=== PATIENT | male | born 1950 | race Caucasian/White ===

== ENCOUNTER 2020-03-01 08:08 | Outpatient (REF) | payer MEDICARE, OTHER, SELFPAY ==
[2020-03-01 10:56] LABS: Thyroid Stimulating Hormone 0.49 uIU/mL (0.32-4.0)
== END 2020-03-01 08:09 | disposition home or self-care (01) ==
LOC: HO.10HDL 08:08
PROVIDERS: Visit Provider Internal Medicine
DX: E03.9 Hypothyroidism, unspecified (principal)
CPT/HCPCS: 84443

== ENCOUNTER 2020-08-09 11:04 | Outpatient (REF) | payer MEDICARE, OTHER, SELFPAY ==
[2020-08-09 13:23] LABS: Thyroid Stimulating Hormone 0.61 uIU/mL (0.32-4.0)
== END 2020-08-09 11:05 | disposition home or self-care (01) ==
LOC: HO.10HDL 11:04
PROVIDERS: Visit Provider Internal Medicine
DX: E03.9 Hypothyroidism, unspecified (principal)
CPT/HCPCS: 36415; 84443

== ENCOUNTER 2021-02-19 07:45 | Outpatient (REF) | payer MEDICARE, OTHER, SELFPAY ==
[2021-02-19 10:17] LABS: MANUAL DIFF FLAG NO
[2021-02-19 10:24] LABS: Basophils Percent Auto 0.8 % (0-2); Eosinophils Absolute Auto 0.1 X10*3/uL (0.0-0.4); Eosinophils Percent Auto 3.4 % (0-4); Hematocrit 46.6 % (42.0-52.0); Hemoglobin 15.1 g/dl (14.0-18.0); Lymphocytes Absolute Auto 1.2 X10*3/uL (1.2-4.9); Lymphocytes Percent Auto 34.1 % (20-40); Mean Corpuscular HGB Conc 32.4 g/dl (31.0-36.0); Mean Corpuscular Hemoglobin 28.2 pg (27.0-33.0); Mean Corpuscular Volume 87.1 fL (80.0-98.0); Mean Platelet Volume 10.2 fL (9.4-12.4); Monocytes Absolute Auto 0.5 X10*3/uL (0.1-1.2); Monocytes Percent Auto 12.6 % (2-11); Neutrophils Absolute Auto 1.8 x10*3/uL (2.0-8.3); Neutrophils Percent Auto 49.1 % (45-73); Platelet Count 238 X10*3/uL (160-400); Red Blood Count 5.35 X10*6/uL (4.60-5.80); Red Cell Distribution Width 12.8 % (11.0-16.0); White Blood Count 3.6 X10*3/uL (4.8-10.8)
[2021-02-19 10:35] LABS: Alanine Aminotransferase 31 U/L (0-40); Albumin Level 4.4 g/dL (3.5-5.0); Alkaline Phosphatase 66 U/L (39-117); Anion Gap 16 (12-20); Aspartate Amino Transferase 24 U/L (5-37); Bilirubin Total 0.8 mg/dL (0.0-1.0); Blood Urea Nitrogen 16 mg/dL (9-16); Calcium 9.5 mg/dL (8.4-10.2); Carbon Dioxide 26 mmol/L (22-29); Chloride 104 mmol/L (96-108); Cholesterol 211 mg/dL; Estimated Glomerular Filt Rate > 60; Glucose Fasting 116 mg/dL (60-99); HDL Cholesterol 50 mg/dL; LDL Cholesterol Calculated 144 mg/dl; Potassium 4.5 mmol/L (3.3-5.1); Sodium 141 mmol/L (135-145); Total Protein 7.1 g/dL (6.5-8.0); Triglycerides 87 mg/dL
[2021-02-19 10:56] LABS: Prostate Specific Antigen Scr 0.08 ng/mL (<0.05-4.0); Thyroid Stimulating Hormone 0.95 uIU/mL (0.32-4.0)
== END 2021-02-19 07:46 | disposition home or self-care (01) ==
LOC: HO.10HDL 07:45
PROVIDERS: Visit Provider Internal Medicine
DX: Z00.00 Encounter for general adult medical examination without abnormal findings (principal); Z12.5 Encounter for screening for malignant neoplasm of prostate
CPT/HCPCS: 36415; 80053; 80061; 84153; 84443; 85025

== ENCOUNTER 2021-08-23 07:31 | Outpatient (REF) | payer MEDICARE, OTHER, SELFPAY ==
[2021-08-23 08:30] LABS: Cholesterol 192 mg/dL; HDL Cholesterol 44 mg/dL; LDL Cholesterol Calculated 135 mg/dl; Triglycerides 66 mg/dL
[2021-08-23 08:53] LABS: Thyroid Stimulating Hormone 1.28 uIU/mL (0.32-4.0)
== END 2021-08-23 07:32 | disposition home or self-care (01) ==
LOC: HO.LAB 07:31
PROVIDERS: PCP Internal Medicine; Visit Provider Internal Medicine
DX: Z00.00 Encounter for general adult medical examination without abnormal findings (principal); E03.9 Hypothyroidism, unspecified
CPT/HCPCS: 36415; 80061; 84443

== ENCOUNTER 2021-09-12 13:41 | Outpatient (REF) | payer MEDICARE, OTHER, SELFPAY ==
--- NOTE | ~2021-09-12 | US_ITS ---
EXAMINATION: US EXTRACRANIAL CAROTID DUPLEX, BILATERAL CLINICAL INFORMATION: Retinal vascular occlusion COMPARISON: None TECHNIQUE: Real-time ultrasound and Doppler techniques (integrating B-mode 2-D vascular images, Doppler spectral analysis and color-flow Doppler imaging) were utilized to interrogate the extracranial carotid arteries, the vertebral arteries and proximal subclavian arteries bilaterally. The degree of stenosis is determined by criteria similar to NASCET. FINDINGS: Right Side: 1. There is mild atherosclerotic plaque seen in the bifurcation/proximal ICA region. 2. The common carotid artery PSV proximally is 80 cm/s and distally 93 cm/s. 3. The proximal internal carotid artery velocities are 108 cm/s systolic and 31 cm/s diastolic. 4. The proximal external carotid artery PSV is 136 cm/s. 5. The vertebral artery shows antegrade flow. 6. The subclavian artery waveforms are normal. Left Side: 1. There is mild atherosclerotic plaque seen in the bifurcation/proximal ICA region. 2. The common carotid artery PSV proximally is 78 cm/s and distally 82 cm/s. 3. The proximal internal carotid artery velocities are 79 cm/s systolic and 24 cm/s diastolic. 4. The proximal external carotid artery PSV is 327 cm/s. 5. The vertebral artery shows antegrade flow. 6. The subclavian artery waveforms are normal. US/US carotid duplex BI IMPRESSION: 1. RIGHT: Minimal, non-hemodynamically significant stenosis of the proximal right internal carotid artery corresponding to a 0-49% stenosis by velocity criteria. 2. LEFT: Minimal, non-hemodynamically significant stenosis of the proximal left internal carotid artery corresponding to a 0-49% stenosis by velocity criteria. 3. Elevated velocities in the right external carotid artery suggesting stenosis.
== END 2021-09-12 13:42 | disposition home or self-care (01) ==
LOC: HO.US 13:41
PROVIDERS: Visit Provider Internal Medicine
DX: H34.9 Unspecified retinal vascular occlusion (principal)
CPT/HCPCS: 93880

== ENCOUNTER 2022-03-04 07:26 | Outpatient (REF) | payer MEDICARE, OTHER, SELFPAY ==
[2022-03-04 07:31] LABS: MANUAL DIFF FLAG NO
[2022-03-04 08:10] LABS: Eosinophils Absolute Auto 0.2 X10*3/uL (0.0-0.4); Eosinophils Percent Auto 5.5 % (0-4); Hematocrit 47.2 % (42.0-52.0); Imm Gran Abs Auto 0.02 X10*3/uL (0.00-0.03); Imm Gran Pct Auto 0.5 % (0.0-0.4); Lymphocytes Percent Auto 25.3 % (20-40); Mean Corpuscular HGB Conc 31.8 g/dl (31.0-36.0); Mean Corpuscular Hemoglobin 28.3 pg (27.0-33.0); Mean Corpuscular Volume 89.1 fL (80.0-98.0); Monocytes Absolute Auto 0.5 X10*3/uL (0.1-1.2); Monocytes Percent Auto 12.5 % (2-11); Neutrophils Absolute Auto 2.2 x10*3/uL (2.0-8.3); Neutrophils Percent Auto 55.2 % (45-73); Platelet Count 228 X10*3/uL (160-400); Red Cell Distribution Width 12.8 % (11.0-16.0)
[2022-03-04 08:58] LABS: Alanine Aminotransferase 26 U/L (0-40); Albumin Level 4.3 g/dL (3.5-5.0); Alkaline Phosphatase 69 U/L (39-117); Anion Gap 14 (12-20); Aspartate Amino Transferase 22 U/L (5-37); Bilirubin Total 0.4 mg/dL (0.0-1.0); Blood Urea Nitrogen 18 mg/dL (9-16); Calcium 10.1 mg/dL (8.4-10.2); Carbon Dioxide 30 mmol/L (22-29); Chloride 103 mmol/L (96-108); Cholesterol 192 mg/dL; Estimated Glomerular Filt Rate > 60; Glucose Fasting 116 mg/dL (60-99); HDL Cholesterol 46 mg/dL; LDL Cholesterol Calculated 127 mg/dl; Sodium 142 mmol/L (135-145); Thyroid Stimulating Hormone 1.75 uIU/mL (0.32-4.0); Total Protein 6.9 g/dL (6.5-8.0); Triglycerides 98 mg/dL
== END 2022-03-04 07:27 | disposition home or self-care (01) ==
LOC: HO.LAB 07:26
PROVIDERS: PCP Internal Medicine; Visit Provider Internal Medicine
DX: Z00.00 Encounter for general adult medical examination without abnormal findings (principal); Z13.0 Encounter for screening for diseases of the blood and blood-forming organs and certain disorders involving the immune mechanism
CPT/HCPCS: 36415; 80053; 80061; 84443; 85025

== ENCOUNTER 2022-10-06 07:45 | Outpatient (REF) | payer MEDICARE, OTHER, SELFPAY ==
[2022-10-06 09:22] LABS: Thyroid Stimulating Hormone 1.79 uIU/mL (0.32-4.0)
== END 2022-10-06 07:46 | disposition home or self-care (01) ==
LOC: HO.LAB 07:45
PROVIDERS: PCP Internal Medicine; Visit Provider Internal Medicine
DX: E03.9 Hypothyroidism, unspecified (principal)
CPT/HCPCS: 36415; 84443

== ENCOUNTER 2023-02-28 04:59 | Emergency (ER) | payer MEDICARE, OTHER, SELFPAY ==
[2023-02-28 05:00] VITALS: BP 158/71; PULSE 59; RESP 18; TEMP 36.6; O2SAT 99; BMI 25.1
--- NOTE | 2023-02-28 05:12 | PC.NURSE ---
Adjusted acuity to 4 from 3, incorrect initial entry.
--- NOTE | 2023-02-28 06:05 | ED_ITS ---
HPI - Dental/Oral General Chief complaint: Dental/Oral Stated complaint: Dental pain Time Seen by Provider: 02/28/23 06:05 Source: patient Mode of arrival: ambulatory Limitations: no limitations History of Present Illness HPI Narrative: Patient history of diffuse dental caries supposed the oral surgeon for full mouth dental implant comes here for pain and swelling in the left lower molar area since yesterday no fever no chills Complaint: tooth pain Teeth map: 2 1. Related Data Home Medications Medication Instructions Recorded Confirmed finasteride 1 mg tablet 1 mg PO DAILY 03/12/20 10/15/22 Previous Rx's Medication Instructions Recorded zolpidem 5 mg tablet 5 mg PO BEDTIME PRN insomnia #90 10/20/22 tabs Synthroid 150 mcg tablet 150 mcg PO QAM #90 tabs 02/16/23 (levothyroxine) amoxicillin 875 mg-potassium 1 tab PO BID #20 tabs 02/28/23 clavulanate 125 mg tablet oxycodone-acetaminophen 5 mg-325 1 tab PO Q6H PRN pain #20 tabs 02/28/23 mg tablet (Percocet) Allergies Allergy/AdvReac Type Severity Reaction Status Date / Time No Known Allergies Allergy Verified 02/28/23 05:03 [No Known Allergies*] Review of Systems 2 Review of Systems: Yes all other systems are reviewed and are negative PMFSH Past Medical History Medical History Hypothyroidism Surgical History H/O rectal polypectomy History of thyroidectomy, total History of hernia repair Family History Family History Father Alzheimers disease Mother Heart disease Colon polyps Other Mental health disorder Social History Social History Housing: House Alcohol intake: current Alcohol intake frequency: a few times a week Patient Tobacco Use Status: Never used Tobacco e-Cigarette/Vaping Use: Never Used Second Hand Smoke Exposure: No Advance Directives: No Advance Directives Information Provided: Yes Current occupational status: retired Cognitive needs: No Hearing needs: No Vision needs: No Physical Exam 2 Vital Signs: Vital Signs: Last Vital Signs Temp 97.8 F 02/28/23 05:00 Pulse 59 02/28/23 05:00 Resp 18 02/28/23 05:00 BP 158/71 H 02/28/23 05:00 Pulse Ox 99 02/28/23 05:00 O2 Del Method Room Air 02/28/23 05:00 BMI result Body Mass Index 25.1 HEENT: Face images: 1. Soft tissue swelling+ Teeth and gingiva: poor dentition Teeth image: 1. Multiple absent and broken caries teeth, tenderness left lower molar tooth 19. With diffuse gum swelling no palpable abscess Medical Decision Making Medical Decision Making [facility] Narrative: Patient with diffuse dental caries no abscess palpable will discharge patient home on pain medication and antibiotic advised to follow-up with oral surgeon as scheduled Discharge Plan Discharge Clinical Impression: Dental caries Patient Disposition: Home, Self-Care Instructions: Toothache (ED) Additional Instructions: Take antibiotic and pain medication as prescribed Follow-up with your dentist Prescriptions: New oxycodone-acetaminophen [Percocet] 5-325 mg tablet 1 tab PO Q6H PRN (Reason: pain) Qty: 20 0RF Rx Instructions: Partial Fill upon patient request. amoxicillin-pot clavulanate 875-125 mg tablet 1 tab PO BID Qty: 20 0RF No Action zolpidem 5 mg tablet 5 mg PO BEDTIME PRN (Reason: insomnia) Qty: 90 5RF levothyroxine [Synthroid] 150 mcg tablet 150 mcg PO QAM Qty: 90 6RF finasteride 1 mg tablet 1 mg PO DAILY
[2023-02-28] MEDS: Amoxicillin/Potassium Clav 875 MG TABLET PO (06:32)
[2023-02-28] MEDS: oxyCODONE HCl Immed Release 5 MG TABLET 10 MG PO (06:32)
== END 2023-02-28 06:41 | disposition home or self-care (01) ==
PROVIDERS: Emergency Provider Internal Medicine; PCP Internal Medicine
DX: K02.9 Dental caries, unspecified (principal); K08.89 Other specified disorders of teeth and supporting structures; F12.90 Cannabis use, unspecified, uncomplicated
CPT/HCPCS: 99283; 99284

== ENCOUNTER 2023-04-07 08:01 | Outpatient (REF) | payer MEDICARE, OTHER, SELFPAY ==
[2023-04-07 09:37] LABS: Thyroid Stimulating Hormone 4.41 uIU/mL (0.32-4.0)
== END 2023-04-07 08:02 | disposition home or self-care (01) ==
LOC: HO.LAB 08:01
PROVIDERS: PCP Internal Medicine; Visit Provider Internal Medicine
DX: E03.9 Hypothyroidism, unspecified (principal)
CPT/HCPCS: 36415; 84443

== ENCOUNTER 2023-04-07 10:01 | Outpatient (AMB) | payer MEDICARE, OTHER, SELFPAY ==
[2023-04-07 10:03] VITALS: BP 158/72; PULSE 62; O2SAT 99; BMI 26.0
--- NOTE | 2023-04-07 10:03 | A.OFFPC_ITS ---
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 Allergies No Known Allergies [No Known Allergies*] Allergy (Verified 04/07/23 10:03) Medication List - Last Reconciled 04/07/23 by Christo Rosenberg MD finasteride 1 mg PO DAILY oxycodone-acetaminophen 5-325 mg (Percocet) 1 tab PO Q6H PRN Synthroid (levothyroxine) 150 mcg PO QAM NS zolpidem 5 mg PO BEDTIME PRN Tobacco use date assessed: 04/07/23 Fall risk assessment: No Falls in past year Last assessed Fall Risk: 04/07/23 HPI 6 month f/u HPI Details hypothyroidism on rx; TSH up a bit; will recheck [facility] Medical History Hypothyroidism Surgical History H/O rectal polypectomy History of thyroidectomy, total History of hernia repair Family History Father Alzheimers disease Mother Heart disease Colon polyps Other Mental health disorder Social History Housing: House Alcohol intake: current Alcohol intake frequency: holidays/special occasions only Patient Tobacco Use Status: Never used Tobacco e-Cigarette/Vaping Use: Never Used Second Hand Smoke Exposure: No Substance Use Type: Marijuana Current occupational status: retired Cognitive needs: No Hearing needs: No Vision needs: No Questionnaire Thrive Questionnaire Date Thrive assessed: 10/15/22 AUDIT C Alcohol Use Questionnaire (AUDIT-C) 1. How often do you have a drink containing alcohol?: 2-3 times a week 2. How many drinks containing alcohol do you have on a typical day when you are drinking?: 1 or 2 Total Score: 3 MANUEL-7 AMB Questionnaire MANUEL-7 Date MANUEL - 7 assessed: 10/15/22 Source: Developed by Drs. Jean Marie Membreno, Mary Sanchez, Uzair Gilbert and colleagues, with an educational saul from [employer]. Review of Systems Const Denies chills, Denies headache(s) and Denies weight loss ENT Denies headache(s) Card Denies chest pain, Denies syncope, Denies irregular heart rhythm and Denies dyspnea Resp Denies chest congestion, Denies cough and Denies dyspnea GI Denies abdominal pain, Denies change in stool character, Denies nausea and Denies vomiting Musc Denies deformity and Denies joint swelling Neuro Denies syncope and Denies headache(s) Physical exam (Primary Care) Vital Signs: Last Vital Signs Pulse 62 04/07/23 10:03 BP 158/72 H 04/07/23 10:03 Pulse Ox 99 04/07/23 10:03 Oxygen Delivery Method Room Air 04/07/23 10:03 BMI result Body Mass Index 26.0 Tobacco/Smoking Status: Tobacco use Status Tobacco use date assessed 04/07/23 04/07/23 10:04 Patient Tobacco Use Status Never used Tobacco 04/07/23 10:04 e-Cigarette/Vaping Use Never Used 04/07/23 10:04 Thrive Assessment: Date of Thrive Assessment Date Thrive assessed 10/15/22 04/07/23 10:04 Const General: cooperative, comfortable, no acute distress and alert Neck Neck: Yes no lymphadenopathy Thyroid: Thyroid normal Resp Effort & Inspection: normal respiratory effort Auscultation: clear to auscultation bilaterally Percussion: percussion normal Cardio Jugular venous distension: no JVD Palpation: normal PMI Rate: regular rate Rhythm: regular rhythm Heart sounds: S1 normal heart sound present and S2 normal heart sound present GI Inspection: Yes normal to inspection Palpation (GI): No hepatosplenomegaly present Skin General skin exam: no rashes or lesions noted Extrem General: Yes no clubbing, cyanosis or edema Assessment and Plan Assessment & Plan (1) Hypothyroidism: Code(s): E03.9 - Hypothyroidism, unspecified Plan: labs Orders: Orders Lipid Panel Today E78.5 - Hyperlipidemia, unspecified Complete Blood Count Auto Diff Today D64.9 - Anemia, unspecified Comprehensive Webb. Panel Fast Today N28.9 - Disorder of kidney and ureter, unspecified Prostate Specific Antigen Scr Today Z00.00 - Encounter for general adult medical examination without abnormal findings Thyroid Stimulating Hormone Today E03.9 - Hypothyroidism, unspecified Medications: New sertraline (Zoloft) 50 mg PO DAILY 30 tabs 3RF Coding Level of Care Code Est Pt Level 3 (15351) Diagnoses Hypothyroidism E03.9
== END 2023-04-07 10:33 | disposition home or self-care (01) ==
PROVIDERS: PCP Internal Medicine; Visit Provider Internal Medicine
DX: E03.9 Hypothyroidism, unspecified (principal)
CPT/HCPCS: 99213

== ENCOUNTER 2023-04-09 08:05 | Outpatient (REF) | payer MEDICARE, OTHER, SELFPAY ==
[2023-04-09 08:19] LABS: MANUAL DIFF FLAG NO
[2023-04-09 08:41] LABS: Basophils Absolute Auto 0.1 X10*3/uL (0.0-0.2); Basophils Percent Auto 1.2 % (0-2); Eosinophils Absolute Auto 0.1 X10*3/uL (0.0-0.4); Eosinophils Percent Auto 2.4 % (0-4); Hematocrit 45.9 % (42.0-52.0); Hemoglobin 14.9 g/dl (14.0-18.0); Imm Gran Abs Auto 0.02 X10*3/uL (0.00-0.03); Imm Gran Pct Auto 0.4 % (0.0-0.4); Lymphocytes Absolute Auto 1.3 X10*3/uL (1.2-4.9); Lymphocytes Percent Auto 25.7 % (20-40); Mean Corpuscular HGB Conc 32.5 g/dl (31.0-36.0); Mean Corpuscular Hemoglobin 28.4 pg (27.0-33.0); Mean Corpuscular Volume 87.4 fL (80.0-98.0); Mean Platelet Volume 9.6 fL (9.4-12.4); Monocytes Absolute Auto 0.5 X10*3/uL (0.1-1.2); Monocytes Percent Auto 9.7 % (2-11); Neutrophils Absolute Auto 3.1 x10*3/uL (2.0-8.3); Neutrophils Percent Auto 60.6 % (45-73); Platelet Count 233 X10*3/uL (160-400); Red Blood Count 5.25 X10*6/uL (4.60-5.80); White Blood Count 5.1 X10*3/uL (4.8-10.8)
[2023-04-09 09:44] LABS: Thyroid Stimulating Hormone 5.25 uIU/mL (0.32-4.0)
[2023-04-09 09:45] LABS: Prostate Specific Antigen Scr < 0.10 ng/mL (<0.05-4.0)
[2023-04-09 09:47] LABS: Alanine Aminotransferase 35 U/L (0-40); Albumin Level 4.5 g/dL (3.5-5.0); Alkaline Phosphatase 59 U/L (39-117); Anion Gap 13 (12-20); Aspartate Amino Transferase 27 U/L (5-37); Bilirubin Total 0.4 mg/dL (0.0-1.0); Blood Urea Nitrogen 20 mg/dL (9-16); Calcium 9.7 mg/dL (8.4-10.2); Carbon Dioxide 28 mmol/L (22-29); Chloride 103 mmol/L (96-108); Cholesterol 233 mg/dL (<200); Estimated Glomerular Filt Rate > 60; Glucose Fasting 122 mg/dL (60-99); HDL Cholesterol 56 mg/dL (>40); LDL Cholesterol Calculated 162 mg/dL (<100); Potassium 4.2 mmol/L (3.3-5.1); Sodium 140 mmol/L (135-145); Total Protein 7.3 g/dL (6.5-8.0); Triglycerides 78 mg/dL (<150)
== END 2023-04-09 08:06 | disposition home or self-care (01) ==
LOC: HO.LAB 08:05
PROVIDERS: PCP Internal Medicine; Visit Provider Internal Medicine
DX: Z00.00 Encounter for general adult medical examination without abnormal findings (principal); E03.9 Hypothyroidism, unspecified; E78.5 Hyperlipidemia, unspecified; D64.9 Anemia, unspecified; N28.9 Disorder of kidney and ureter, unspecified; Z12.5 Encounter for screening for malignant neoplasm of prostate
CPT/HCPCS: 36415; 80053; 80061; 84153; 84443; 85025

== ENCOUNTER 2023-09-16 07:19 | Emergency (ER) | payer MEDICARE, OTHER, SELFPAY ==
--- NOTE | ~2023-09-16 | CT_ITS ---
EXAMINATION: CT ABDOMEN AND PELVIS WITH CONTRAST CLINICAL INFORMATION: Status post hernia repair with constipation COMPARISON: None available. TECHNIQUE: Multidetector volumetric images were obtained from the superior aspect of the liver through the pubic symphysis following administration 85 mL of Omnipaque 350 intravenous contrast. Sagittal and coronal reformatted images were obtained on the technologist's workstation. Oral contrast: No This CT examination was performed using dose optimization techniques as appropriate, variously including the following: *Automated exposure control *Adjustment of mA and/or kV according to patient size (this includes techniques or standardized protocols for targeted exams where dose is matched to indication/reason for exam; i.e. extremities or head) *Use of iterative reconstruction technique DLP: 512 mGy-cm FINDINGS: LUNG BASES: The visualized lung bases are unremarkable. LIVER, GALLBLADDER, AND BILIARY TREE: The liver is normal in size, shape, and attenuation. No focal hepatic lesion or biliary ductal dilatation is present. The gallbladder is unremarkable with no evidence of radiopaque gallstones, gallbladder wall thickening, or obvious pericholecystic inflammatory changes. PANCREAS: Unremarkable. SPLEEN: Unremarkable. ADRENAL GLANDS: Unremarkable. KIDNEYS AND URETERS: The kidneys are normal in size, shape, and attenuation. No hydronephrosis, hydroureter, or calculi seen. No perinephric stranding. BLADDER: Unremarkable. GASTROINTESTINAL TRACT: There is marked constipation but no evidence of colitis, diverticulitis, bowel obstruction. Small bowel loops are normal. There is no evidence of mesenteric lymphadenopathy or ascites. There is small hiatal hernia. ABDOMINAL WALL: No significant hernia is appreciated. LYMPH NODES: Normal. VASCULAR: Unremarkable. PELVIC VISCERA: Unremarkable. OSSEOUS STRUCTURES: There are mild multilevel degenerative changes in lumbar spine without spondylolysis or listhesis CT/CT abdomen pelvis w IV con IMPRESSION: Constipation. Small hiatal hernia. Fleischner guidelines were followed.
[2023-09-16 07:55] VITALS: BP 154/55; PULSE 70; RESP 16; TEMP 36.3; O2SAT 96; BMI 25.8
[2023-09-16 08:19] LABS: MANUAL DIFF FLAG NO
[2023-09-16 08:22] LABS: Appearance Urine Clear; Color Urine Yellow; Glucose Urine UA Negative (Negative); Leukocyte Esterase Urine Negative (Negative); Nitrite Urine Negative (Negative); Specific Gravity - Urine 1.025 (1.005-1.025); Urine Blood Negative (Negative); Urine Ketones Negative (Negative); Urine Protein Negative (Neg-Trace)
[2023-09-16 08:25] LABS: Basophils Percent Auto 0.7 % (0-2); Eosinophils Percent Auto 0.9 % (0-4); Hematocrit 43.3 % (42.0-52.0); Imm Gran Abs Auto 0.01 X10*3/uL (0.00-0.03); Imm Gran Pct Auto 0.2 % (0.0-0.4); Lymphocytes Absolute Auto 0.9 X10*3/uL (1.2-4.9); Lymphocytes Percent Auto 22.2 % (20-40); Mean Corpuscular HGB Conc 32.3 g/dl (31.0-36.0); Mean Corpuscular Hemoglobin 28.9 pg (27.0-33.0); Mean Corpuscular Volume 89.5 fL (80.0-98.0); Mean Platelet Volume 9.5 fL (9.4-12.4); Monocytes Absolute Auto 0.4 X10*3/uL (0.1-1.2); Monocytes Percent Auto 8.3 % (2-11); Neutrophils Absolute Auto 2.9 x10*3/uL (2.0-8.3); Neutrophils Percent Auto 67.7 % (45-73); Platelet Count 251 X10*3/uL (160-400); Red Blood Count 4.84 X10*6/uL (4.60-5.80); Red Cell Distribution Width 12.7 % (11.0-16.0); White Blood Count 4.2 X10*3/uL (4.8-10.8)
--- NOTE | 2023-09-16 08:37 | ED.ABDPAIN ---
HPI - Abdominal Pain General Chief Complaint: Abdominal Pain Stated Complaint: abd pain Time Seen by Provider: 09/16/23 08:17 Source: patient and old records reviewed Mode of arrival: ambulatory Limitations: no limitations History of Present Illness ED Provider: LIANE HPI narrative: 73 yo male with PMH of thyroidectomy on thyroid supplement, prior hernia surgery notes two weeks ago had 14 teeth extracted and then dentures. He was never on antibiotics. He had taken a handful of oxycodone became constipated so he tried miralax, docusate and senna. He also notes he is likely lactose intolerate but was drinking milkshakes with ice cream for almost every meal. He then noted this weekend since he has significant diarrhea and was incontinent on Thursday of stool on Thursday things seemed better but since Thursday he has been bloated with cramps and really no bowel movement despite still eating. MD elicited complaint: other (constipation, distention, change in BM) Pertinent past history: none Onset (ago): day(s) (Thursday) Pain Consistency: intermittent Location: diffuse Severity: mild Quality: dull Radiation: none Migration to: no migration Exacerbating factors: eating Relieving factors: nothing Context: recent surgery/procedure Associated symptoms: constipation Related Data Home Medications ?Medication ?Instructions ?Recorded ?Confirmed finasteride 1 mg tablet 1 mg PO DAILY 03/12/20 04/07/23 Previous Rx's ?Medication ?Instructions ?Recorded Synthroid 150 mcg tablet 150 mcg PO QAM #90 tabs 02/16/23 (levothyroxine) oxycodone-acetaminophen 5 mg-325 1 tab PO Q6H PRN pain #20 tabs 02/28/23 mg tablet (Percocet) sertraline 50 mg tablet (Zoloft) 50 mg PO DAILY #30 tabs 04/07/23 levothyroxine 137 mcg capsule 137 mcg PO DAILY #90 caps 04/16/23 Synthroid 137 mcg tablet 137 mcg PO DAILY #90 tabs 04/20/23 (levothyroxine) zolpidem 5 mg tablet 5 mg PO BEDTIME PRN insomnia #90 07/15/23 tabs lactulose 20 gram/30 mL oral 20 g (30 mL) PO DAILY PRN 09/16/23 solution constipation #1,200 mL Allergies Allergy/AdvReac Type Severity Reaction Status Date / Time No Known Allergies Allergy Verified 09/16/23 07:56 [No Known Allergies*] Review of Systems Review of Systems Constitutional : No Weight loss, No Fever, No Chills ENT/Mouth : No sore throat, No Rhinorrhea Eyes: No Swelling, No Redness Cardiovascular : No Chest Pain, No SOB, NoEdema Respiratory : No Cough, No Sputum, No Wheezing Gastrointestinal : no Nausea, no Vomiting, no Diarrhea, positive abdominal Pain, No Hematochezia, No Melena, pos constipation Genitourinary : No Dysuria, No Urinary Frequency, No Hematuria, No Urgency Musculoskeletal : No joint pain, No Myalgias, No Joint Swelling Skin : No Skin Lesions, No rash Neuro : No Weakness, No Numbness, No Dizziness, No Headache Psych : No Anxiety/Panic, No Depression All other systems reviewed and are negative. [facility], [facility] Past Medical History Attestation statement: The following information was validated with the patient. Source: old records reviewed Medical History Hypothyroidism Surgical History H/O rectal polypectomy History of thyroidectomy, total History of hernia repair Family History Family History Father Alzheimers disease Mother Heart disease Colon polyps Other Mental health disorder Social History Social History Housing: House Alcohol intake: current Alcohol intake frequency: holidays/special occasions only Patient Tobacco Use Status: Never used Tobacco e-Cigarette/Vaping Use: Never Used Second Hand Smoke Exposure: No Substance Use Type: Marijuana Advance Directives: No Advance Directives Information Provided: No Current occupational status: retired Cognitive needs: No Hearing needs: No Vision needs: No Physical Exam ED Vital Signs: Vital Signs - 24 hr 09/16/23 07:55 Temperature 97.4 F Pulse Rate 70 Respiratory Rate 16 Blood Pressure 154/55 H Pulse Oximetry 96 Oxygen Delivery Method Room Air BMI result Body Mass Index 25.8 Appearance: Alert. Oriented X3. No acute distress. Eyes: Pupils equal, round and reactive to light. ENT: Pharynx normal. Neck: Normal inspection. Neck supple. CVS: Normal heart rate and rhythm. Pulses normal. Respiratory: No respiratory distress. Breath sounds normal. Abdomen: Soft and minimal diffuse ttp but no rebound or guarding. mild distended. Skin: Skin warm and dry. Normal skin color. Normal skin turgor. Extremities: No lower extremity edema. Neuro: Oriented X 3. No motor deficit. No sensory deficit. Medical Decision Making Medical Decision Making [facility] Narrative: 73 yo male prior hernia surgery recent dental extractions but no antibiotic use - here with c/o eating milkshakes and likely history of lactose intolerant then developed constipation bloating along with oxycodone use over reached with laxatives then sig non bloody diarrhea now back to constipation distention and some leakage at this time labs, stool studies, CT scan for colitis, diverticulitis, constipation, SBO Differential Diagnosis Differential Diagnoses: The differential diagnosis associated with the presentation includes constipation, colitis, diverticulitis Admission/Observation Consideration of admission/observation: Escalation of care including admission/observation considered labs reassuring marked constipation will start on lactulose and DC home Lab Data [facility] Lab Attestation statement: I reviewed the patient's lab results. 09/16/23 08:15 09/16/23 08:15 Labs: Lab Results 09/16/23 Range/Units 08:15 WBC 4.2 L (4.8-10.8) X10*3/uL RBC 4.84 (4.60-5.80) X10*6/uL Hgb 14.0 (14.0-18.0) g/dl Hct 43.3 (42.0-52.0) % MCV 89.5 (80.0-98.0) fL MCH 28.9 (27.0-33.0) pg MCHC 32.3 (31.0-36.0) g/dl RDW 12.7 (11.0-16.0) % Plt Count 251 (160-400) X10*3/uL MPV 9.5 (9.4-12.4) fL Immature Gran % (Auto) 0.2 (0.0-0.4) % Neut % (Auto) 67.7 (45-73) % Lymph % (Auto) 22.2 (20-40) % [place] % (Auto) 8.3 (2-11) % Eos % (Auto) 0.9 (0-4) % Baso % (Auto) 0.7 (0-2) % Lymph # (Auto) 0.9 L (1.2-4.9) X10*3/uL [place] # (Auto) 0.4 (0.1-1.2) X10*3/uL Eos # (Auto) 0.0 (0.0-0.4) X10*3/uL Baso # (Auto) 0.0 (0.0-0.2) X10*3/uL Abs Immat Gran (auto) 0.01 (0.00-0.03) X10*3/uL Absolute Neuts (auto) 2.9 (2.0-8.3) x10*3/uL Absolute Nucleated RBC 0.000 (0.0-0.012) X10*3/uL Nucleated RBC % (auto) 0.0 (0.0-0.2) /100WBC Sodium 142 (135-145) mmol/L Potassium 4.0 (3.3-5.1) mmol/L Chloride 107 (96-108) mmol/L Carbon Dioxide 26 (22-29) mmol/L Anion Gap 13 (12-20) BUN 18 H (9-16) mg/dL Creatinine 0.77 (0.5-1.4) mg/dL Estim Creat Clear Calc 81.4 Estimated GFR > 60 Random Glucose 153 H (60-115) mg/dL Calcium 9.4 (8.4-10.2) mg/dL Magnesium 2.1 (1.6-2.6) mg/dL Total Bilirubin 0.5 (0.0-1.0) mg/dL Direct Bilirubin 0.2 (0.0-0.5) mg/dL AST 21 (5-37) U/L ALT 24 (0-40) U/L Alkaline Phosphatase 68 (39-117) U/L Total Protein 6.7 (6.5-8.0) g/dL Albumin 4.1 (3.5-5.0) g/dL Lipase 18 (8-78) U/L Urine Color Yellow Urine Appearance Clear Urine pH 6.0 (5.0-9.0) Ur Specific [place] 1.025 (1.005-1.025) Urine Protein Negative (Neg-Trace) mg/dL Urine Glucose (UA) Negative (Negative) mg/dL Urine Ketones Negative (Negative) mg/dL Urine Blood Negative (Negative) Urine Nitrite Negative (Negative) Ur Leukocyte Esterase Negative (Negative) Independent Interpretation I performed an independent interpretation of an: CT Scan (marked constipation ) Radiology Impression Discussion of test interpretation with radiology: I have reviewed the radiologist's reading. External Record Review External record reviewed: Outpatient record Prescription Management I considered prescription management with: Other Medications Administered Discontinued Medications Generic Name Dose Route Start Last Admin Trade Name Freq PRN Reason Stop Dose Admin Iohexol 100 ml 09/16/23 09:25 09/16/23 09:25 Iohexol 350 Mg/Ml 100 Ml Infus..Btl IV 09/16/23 09:26 85 ml ONCE ONE Administration Discharge Plan Discharge Clinical Impression: Constipation Qualifiers: Constipation type: unspecified constipation type Qualified Code(s): K59.00 - Constipation, unspecified Patient Disposition: Home, Self-Care Instructions: Constipation (ED) Additional Instructions: avoid dairy at this time your CT scan is showing moderate to large constipation your labs are reassuring take the lactulose medication only no other medications for the next 1 week and stay hydrated drink 40 to 60 ounces of water a day take a stool softener as well - colace 100mg twice a day DO NOT TAKE ANY OTHER LAXATIVES return for worsening pain, bloody stools, fevers, inability to eat or drink or any other concerns. Prescriptions: New lactulose 20 gram/30 mL solution 20 g PO DAILY PRN (Reason: constipation) Qty: 1200 0RF No Action levothyroxine [Synthroid] 150 mcg tablet 150 mcg PO QAM Qty: 90 6RF levothyroxine 137 mcg capsule 137 mcg PO DAILY Qty: 90 3RF levothyroxine [Synthroid] 137 mcg tablet 137 mcg PO DAILY Qty: 90 3RF zolpidem 5 mg tablet 5 mg PO BEDTIME PRN (Reason: insomnia) Qty: 90 5RF oxycodone-acetaminophen [Percocet] 5-325 mg tablet 1 tab PO Q6H PRN (Reason: pain) Qty: 20 0RF Rx Instructions: Partial Fill upon patient request. finasteride 1 mg tablet 1 mg PO DAILY sertraline [Zoloft] 50 mg tablet 50 mg PO DAILY Qty: 30 3RF Print Language: Bhutanese
[2023-09-16 08:44] LABS: Alanine Aminotransferase 24 U/L (0-40); Albumin Level 4.1 g/dL (3.5-5.0); Alkaline Phosphatase 68 U/L (39-117); Aspartate Amino Transferase 21 U/L (5-37); Bilirubin Direct 0.2 mg/dL (0.0-0.5); Bilirubin Total 0.5 mg/dL (0.0-1.0); Lipase 18 U/L (8-78); Magnesium 2.1 mg/dL (1.6-2.6); Total Protein 6.7 g/dL (6.5-8.0)
[2023-09-16 09:10] LABS: Anion Gap 13 (12-20); Blood Urea Nitrogen 18 mg/dL (9-16); Calcium 9.4 mg/dL (8.4-10.2); Carbon Dioxide 26 mmol/L (22-29); Chloride 107 mmol/L (96-108); Creatinine Clr Calc Pharmacy 81.4; Estimated Glomerular Filt Rate > 60; Glucose Random 153 mg/dL (60-115); Sodium 142 mmol/L (135-145)
--- NOTE | 2023-09-16 09:20 | PC.NURSE ---
a&ox4. vss and up to date. pt presents to ED w/ ongoing constipation x thursday. pt recently had dental surgery/dentures placed. prescribed oxycodone. became constipated - took OTC laxatives w/o relief. pt verbalizing slight episodes of being incontinent of diarrhea onto underwear. yellow in nature. denies any n/v. abd nontender. pt to CT at this time. no sob/wob noted. respirations even and unlabored. plan of care ongoing.
[2023-09-16] MEDS: iohexoL 350 MG/ML 100 ML INFUS..BTL IV (09:25)
[2023-09-16 10:27] VITALS: BP 164/82; PULSE 62; RESP 18; TEMP 36.9; O2SAT 96
== END 2023-09-16 10:28 | disposition home or self-care (01) ==
PROVIDERS: Emergency Provider Emergency Medicine; PCP Internal Medicine
DX: K59.00 Constipation, unspecified (principal)
CPT/HCPCS: 36415; 74177; 80048; 80076; 81003; 83690; 83735; 85025; 99283; 99284; Q9967

== ENCOUNTER 2023-09-30 10:45 | Outpatient (REF) | payer MEDICARE, OTHER, SELFPAY ==
[2023-09-30 12:23] LABS: Thyroid Stimulating Hormone 0.77 uIU/mL (0.32-4.0)
== END 2023-09-30 10:46 | disposition home or self-care (01) ==
LOC: HO.LAB 10:45
PROVIDERS: PCP Internal Medicine; Visit Provider Internal Medicine
DX: Z13.29 Encounter for screening for other suspected endocrine disorder (principal)
CPT/HCPCS: 36415; 84443

== ENCOUNTER 2023-10-07 09:15 | Outpatient (AMB) | payer MEDICARE, OTHER, SELFPAY ==
[2023-10-07 09:21] VITALS: BP 120/60; PULSE 50; O2SAT 97; BMI 26.0
--- NOTE | 2023-10-07 09:21 | A.OFFPC_ITS ---
Vital Signs 10/07/23 09:21 Height 5 ft 8 in Weight 171 lb BMI 26.0 BP 120/60 Blood Pressure Location Lt brachial Position Sitting Pulse 50 Pulse Source Pulse Oximeter Pulse Oximetry (%) 97 Oxygen Delivery Method Room Air Intake Visit Reasons: thyroid checked Food Stand Manager Required: No Violent Crimes Detective: Not Required per policy Accompanied by: Self / Same As Patient Allergies No Known Allergies [No Known Allergies*] Allergy (Verified 10/07/23 09:22) Medication List - Last Reconciled 10/07/23 by Christo Rosenberg MD finasteride 1 mg PO DAILY lactulose 20 grams (30 mL) PO DAILY PRN levothyroxine 137 mcg PO DAILY oxycodone-acetaminophen 5-325 mg (Percocet) 1 tab PO Q6H PRN sertraline (Zoloft) 50 mg PO DAILY Synthroid (levothyroxine) 150 mcg PO QAM NS Synthroid (levothyroxine) 137 mcg PO DAILY NS zolpidem 5 mg PO BEDTIME PRN Tobacco use date assessed: 10/07/23 Fall risk assessment: No Falls in past year Last assessed Fall Risk: 10/07/23 Dental Screening Dental Screen Date: 10/07/23 Did you have a dental visit in the last 12 months?: Yes Did you have a dental problem in the last 6 months where you did not have access to dental care?: No Was dental information given to patient?: Patient has dentist HPI thyroid checked HPI Details hypothyroidism on rx; doing well; compliant [facility] Medical History Hypothyroidism Surgical History H/O rectal polypectomy History of thyroidectomy, total History of hernia repair Family History Father Alzheimers disease Mother Heart disease Colon polyps Other Mental health disorder Social History Housing: House Alcohol intake: current Alcohol intake frequency: holidays/special occasions only Patient Tobacco Use Status: Never used Tobacco e-Cigarette/Vaping Use: Never Used Second Hand Smoke Exposure: No Substance Use Type: Marijuana Current occupational status: retired Cognitive needs: No Hearing needs: No Vision needs: No Questionnaire PHQ-9 Over the last 2 weeks, how often have you been bothered by any of the following problems? 1. Little interest or pleasure in doing things: not at all 2. Feeling down, depressed, or hopeless: not at all 3. Trouble falling or staying asleep, or sleeping too much: not at all 4. Feeling tired or having little energy: not at all 5. Poor appetite or overeating: not at all 6. Feeling bad about yourself - or that you are a failure or have let yourself or your family down: not at all 7. Trouble concentrating on things, such as reading the newspaper or watching television: not at all 8. Moving or speaking so slowly that other people could have noticed. Or the opposite - being so fidgety or restless that you have been moving around a lot more than usual: not at all 9. Thoughts that you would be better off or of hurting yourself in some way: not at all Total score: 0 Depression Screening Interpretation: Negative Depression Screening Done: Yes 44806 - PHQ-9 Billing: Yes Source: Developed by Drs. Jean Marie Membreno, Mary Sanchez, Uzair Gilbert and colleagues, with an educational saul from [employer]. Thrive Questionnaire Date Thrive assessed: 10/07/23 I am a: Patient What is your living situation today?: I have a steady place to live Within the past 12 months, did the food you bought not last and you didn't have the money to get more?: Never true Within the past 12 months, did you worry whether your food would run out before you got money to buy more?: Never true Do you have trouble paying for medicines?: No Do you have trouble getting transportation to medical appointments?: No Do you have trouble paying your heating and electricity bill?: No Do you have trouble taking care of your child, family member or friend?: No Do you have trouble with day-to-day activities such as bathing, preparing meals, shopping, managing finances, etc.?: No Are you currently unemployed and looking for a job?: No Are you interested in more education?: No Please select the resources that you would like help with: None THRIVE Score: 0 AUDIT C Alcohol Use Questionnaire (AUDIT-C) 1. How often do you have a drink containing alcohol?: 2-3 times a week 2. How many drinks containing alcohol do you have on a typical day when you are drinking?: 1 or 2 Total Score: 3 MANUEL-7 AMB Questionnaire MANUEL-7 Date MANUEL - 7 assessed: 10/07/23 Feeling nervous, anxious, or on edge: 0 = Not at all Not being able to stop or control worryin = Not at all Worrying too much about different things: 0 = Not at all Trouble relaxin = Not at all Being so restless that it is hard to sit still: 0 = Not at all Becoming easily annoyed or irritable: 0 = Not at all Feeling afraid as if something awful might happen: 0 = Not at all Total MANUEL-7 score (0-4 normal; 5-9 mild; 10-14 moderate; 15-21 severe): 0 Source: Developed by Drs. Jean Marie Membreno, Mary Sanchez, Uzair Gilbert and colleagues, with an educational saul from [employer]. Review of Systems Const Denies chills, Denies headache(s) and Denies weight loss ENT Denies headache(s) Card Denies chest pain, Denies syncope, Denies irregular heart rhythm and Denies dyspnea Resp Denies chest congestion, Denies cough and Denies dyspnea GI Denies abdominal pain, Denies change in stool character, Denies nausea and Denies vomiting Musc Denies deformity and Denies joint swelling Neuro Denies syncope and Denies headache(s) Physical exam (Primary Care) Vital Signs: Last Vital Signs Pulse 50 10/07/23 09:21 BP 120/60 10/07/23 09:21 Pulse Ox 97 10/07/23 09:21 Oxygen Delivery Method Room Air 10/07/23 09:21 BMI result Body Mass Index 26.0 Tobacco/Smoking Status: Tobacco use Status Tobacco use date assessed 10/07/23 10/07/23 09:22 Patient Tobacco Use Status Never used Tobacco 10/07/23 09:22 e-Cigarette/Vaping Use Never Used 10/07/23 09:22 PHQ-9: PHQ-9 Score PHQ-9: Total score 0 10/07/23 09:22 Depression Screening Interpretation: Negative Thrive Assessment: Date of Thrive Assessment Date Thrive assessed 10/07/23 10/07/23 09:22 Const General: cooperative, comfortable, no acute distress and alert Neck Neck: Yes no lymphadenopathy Thyroid: Thyroid normal Resp Effort & Inspection: normal respiratory effort Auscultation: clear to auscultation bilaterally Percussion: percussion normal Cardio Jugular venous distension: no JVD Palpation: normal PMI Rate: regular rate Rhythm: regular rhythm Heart sounds: S1 normal heart sound present and S2 normal heart sound present GI Inspection: Yes normal to inspection Palpation (GI): No hepatosplenomegaly present Skin General skin exam: no rashes or lesions noted Extrem General: Yes no clubbing, cyanosis or edema Assessment and Plan Assessment & Plan (1) Hypothyroidism: Code(s): E03.9 - Hypothyroidism, unspecified Plan: stable; same rx Orders: Orders Lipid Panel Today Z13.220 - Encounter for screening for lipoid disorders Thyroid Stimulating Hormone Today Z13.29 - Encounter for screening for other suspected endocrine disorder Glucose Fasting Today R73.9 - Hyperglycemia, unspecified Coding Level of Care Code Est Pt Level 3 (61345) Diagnoses Hypothyroidism E03.9
== END 2023-10-07 09:44 | disposition home or self-care (01) ==
PROVIDERS: PCP Internal Medicine; Visit Provider Internal Medicine
DX: E03.9 Hypothyroidism, unspecified (principal)
CPT/HCPCS: 99213

== ENCOUNTER 2024-02-08 10:46 | Outpatient (AMB) | payer MEDICARE, OTHER, SELFPAY ==
[2024-02-08 10:50] VITALS: BP 126/68; PULSE 66; O2SAT 96; BMI 25.4
--- NOTE | 2024-02-08 10:50 | MHC.PC.OV ---
Vital Signs 02/08/24 10:50 Height 5 ft 8 in Weight 167 lb BMI 25.4 BP 126/68 Blood Pressure Location Lt brachial Position Sitting Pulse 66 Pulse Source Pulse Oximeter Pulse Oximetry (%) 96 Oxygen Delivery Method Room Air Intake Visit Reasons: preop cataract surgery clearance Clinical Rehabilitation Aide Required: No Accompanied by: Self / Same As Patient Allergies No Known Allergies [No Known Allergies*] Allergy (Verified 02/08/24 10:52) Medication List - Last Reconciled 02/09/24 by Christo Rosenberg MD finasteride 1 mg PO DAILY lactulose 20 grams (30 mL) PO DAILY PRN levothyroxine 137 mcg PO DAILY sertraline (Zoloft) 50 mg PO DAILY Synthroid (levothyroxine) 150 mcg PO QAM NS Synthroid (levothyroxine) 137 mcg PO DAILY NS zolpidem 5 mg PO BEDTIME PRN Tobacco use date assessed: 10/07/23 Fall risk assessment: No Falls in past year Last assessed Fall Risk: 02/08/24 Dental Screening Dental Screen Date: 10/07/23 HPI preop cataract surgery clearance HPI Details scheduled for bilateral cataract surgery; hypothyroidism on rx stable; no history of CAD PFSH Medical History Hypothyroidism Surgical History H/O rectal polypectomy History of thyroidectomy, total History of hernia repair Family History Father Alzheimers disease Mother Heart disease Colon polyps Other Mental health disorder Social History Housing: House Alcohol intake: current Alcohol intake frequency: holidays/special occasions only Patient Tobacco Use Status: Never used Tobacco Tobacco use type: Cigarette e-Cigarette/Vaping Use: Never Used Second Hand Smoke Exposure: No Substance Use Type: Marijuana Current occupational status: retired Cognitive needs: No Hearing needs: No Vision needs: No Questionnaire Thrive Questionnaire Date Thrive assessed: 10/07/23 MANUEL-7 AMB Questionnaire MANUEL-7 Date MANUEL - 7 assessed: 10/07/23 Source: Developed by Drs. Jean Marie Membreno, Mary Sanchez, Uzair Gilbert and colleagues, with an educational saul from [employer]. Review of Systems Const Denies chills, Denies fatigue, Denies headache(s) and Denies weight loss Eyes Denies change in vision, Denies diplopia and Denies eye pain ENT Denies vertigo, Denies dizziness, Denies headache(s) and Denies nasal discharge Card Denies chest pain, Denies rapid heart rate and Denies dyspnea on exertion Resp Denies chest congestion, Denies cough, Denies pain with cough and Denies dyspnea on exertion GI Denies abdominal pain, Denies hematochezia and Denies change in bowel habits Musc Denies myalgias, Denies arthralgias and Denies joint swelling Skin/Breast Denies lesions and Denies unusual bruising Neuro Denies vertigo, Denies dizziness, Denies headache(s) and Denies focal weakness Endo Denies fatigue Physical exam (Primary Care) Vital Signs: Last Vital Signs Pulse 66 02/08/24 10:50 BP 126/68 02/08/24 10:50 Pulse Ox 96 02/08/24 10:50 Oxygen Delivery Method Room Air 02/08/24 10:50 BMI result Body Mass Index 25.4 Tobacco/Smoking Status: Tobacco use Status Tobacco use date assessed 10/07/23 02/08/24 10:54 Patient Tobacco Use Status Never used Tobacco 02/08/24 10:54 Tobacco use type Cigarette 02/08/24 10:54 e-Cigarette/Vaping Use Never Used 02/08/24 10:54 Thrive Assessment: Date of Thrive Assessment Date Thrive assessed 10/07/23 02/08/24 10:54 Const General: cooperative, healthy appearing and no acute distress Orientation/consciousness: oriented to person, oriented to place and oriented to time [facility] Head: Yes normal to inspection, Yes normocephalic and Yes atraumatic Mouth: Normal oral and palatal mucosa present and tongue normal Throat: Yes posterior oropharynx normal and Yes uvula midline Eyes General: appearance normal, both eyes and all related structures Neck Neck: Yes normal visual inspection, Yes full ROM and Yes no lymphadenopathy Thyroid: Thyroid normal Carotids: normal carotid upstroke Chest Chest palpation & inspection: normal inspection of the chest Resp Effort & Inspection: normal respiratory effort and able to speak in complete sentences Auscultation: clear to auscultation bilaterally Cardio Jugular venous distension: no JVD Palpation: normal PMI Rate: regular rate Rhythm: regular rhythm Heart sounds: S1 normal heart sound present and S2 normal heart sound present GI Inspection: Yes normal to inspection Palpation (GI): Soft to palpation and No hepatosplenomegaly present Auscultation: normal bowel sounds General: Yes no CVA tenderness Back/Spine/Pelvis Back: no CVA tenderness Skin General skin exam: no rashes or lesions noted Neuro General: oriented to person, oriented to place and oriented to time Extrem General: Yes normal to inspection and Yes full ROM Coding Level of Care Code Est Pt Level 4 (93778) Diagnoses Preop exam for internal medicine Z01.818 Hypothyroidism E03.9 Assessment & Plan Assessment & Plan (1) Preop exam for internal medicine: Code(s): Z01.818 - Encounter for other preprocedural examination Category: Medical Plan: low risk for cardiovascular compliacations; cleared for surgery (2) Hypothyroidism: Code(s): E03.9 - Hypothyroidism, unspecified Category: Medical Plan: stable; same rx
== END 2024-02-08 11:03 | disposition home or self-care (01) ==
PROVIDERS: PCP Internal Medicine; Visit Provider Internal Medicine
DX: Z01.818 Encounter for other preprocedural examination (principal); E03.9 Hypothyroidism, unspecified

== ENCOUNTER → 2024-02-08 10:46 | Outpatient (BNVA) | payer MEDICARE, OTHER, SELFPAY | PROVIDERS: PCP Internal Medicine; Visit Provider Internal Medicine | DX: Z01.818 Encounter for other preprocedural examination (principal); E03.9 Hypothyroidism, unspecified | CPT/HCPCS: 99212 ==

== ENCOUNTER 2024-02-29 06:41 | Day surgery (SDC) | payer MEDICARE, OTHER, SELFPAY ==
[2024-02-23 07:06] VITALS: BMI 25.4
--- NOTE | 2024-02-25 13:31 | HO.ANESPROP2 ---
Documented by User: Cait Millard NP 02/25/24 13:32 HPI - Anesthesia Eval Consult details Narrative: 73yo M for Left Cataract Extraction IOL Insertion No previous cataract on record PMFSH Active Problems Active Problems: All Active Problems Preop exam for internal medicine (Acute) Encounter for subsequent annual wellness visit (AWV) in Medicare patient (Acute) Encounter for annual wellness visit (AWV) in Medicare patient (Acute) Hypothyroidism (Acute) Past Medical History Medical History Hypothyroidism Family History Family History Father Alzheimers disease Mother Heart disease Colon polyps Other Mental health disorder Surgical History Surgical History H/O rectal polypectomy History of thyroidectomy, total History of hernia repair Social History Social History Housing: House Are you a primary foster care therapist to a significant other at home: No Do you presently have visiting nurse or other home services: No Alcohol intake: current Alcohol intake frequency: holidays/special occasions only Patient Tobacco Use Status: Never used Tobacco Tobacco use type: Cigarette e-Cigarette/Vaping Use: Never Used Second Hand Smoke Exposure: No Use of substances other than those prescribed or required for medical reasons: Yes Substance Use Type: Marijuana Advance Directives: No Advance Directives Information Provided: Yes Advance Directives on File: No Recently lost weight without trying: No Eating poorly because of decreased appetite: No Nutrition Risks: No Nutritional Risk service: No Current occupational status: retired Cognitive needs: No Hearing needs: No Vision needs: No Meds Allergies Allergy/AdvReac Type Severity Reaction Status Date / Time No Known Allergies Allergy Verified 02/08/24 10:52 [No Known Allergies*] Home Medications ?Medication ?Instructions ?Recorded ?Confirmed ?Last Taken ?Type finasteride 1 mg tablet 1 mg PO DAILY 03/12/20 02/23/24 Unknown History Exam Height,Weight and Vital Signs: Height 5 ft 8 in Weight 75.75 kg Assessment and Plan Assessment Anesthesia Assessment: Chart Reviewed Documented by User: Maribel Ba MD 02/29/24 07:35 PMF Past Medical History Medical History Hypothyroidism Family History Family History Father Alzheimers disease Mother Heart disease Colon polyps Other Mental health disorder Surgical History Surgical History H/O rectal polypectomy History of thyroidectomy, total History of hernia repair History of Problems with Anesthesia: No Social History Social History Housing: House Are you a primary foster care therapist to a significant other at home: No Do you presently have visiting nurse or other home services: No Alcohol intake: current Alcohol intake frequency: holidays/special occasions only Patient Tobacco Use Status: Never used Tobacco Tobacco use type: Cigarette e-Cigarette/Vaping Use: Never Used Second Hand Smoke Exposure: No Use of substances other than those prescribed or required for medical reasons: Yes Substance Use Type: Marijuana Advance Directives: No Advance Directives Information Provided: Yes Advance Directives on File: No Recently lost weight without trying: No Eating poorly because of decreased appetite: No Nutrition Risks: No Nutritional Risk service: No Current occupational status: retired Cognitive needs: No Hearing needs: No Vision needs: No Meds Allergies Allergy/AdvReac Type Severity Reaction Status Date / Time No Known Allergies Allergy Verified 02/08/24 10:52 [No Known Allergies*] Home Medications ?Medication ?Instructions ?Recorded ?Confirmed ?Last Taken ?Type finasteride 1 mg tablet 1 mg PO DAILY 03/12/20 02/23/24 Unknown History Exam Airway Mallampati Class: II (edentulous) TM Dist: >3cm Neck ROM: Full Denture: Upper and Lower Loose/Missing/Broken Teeth: Yes, Upper and Lower Heart: RRR Lungs: CTA Assessment and Plan Assessment Anesthesia Assessment: Anesthesia Plan Discussed Final Anesthetic Review History of Problems with Anesthesia: No NPO: Yes ASA Class: II Final Preanesthetic Review: Meds/Allgs Chart Reviewed, Consent Obtained/Reviewed and Anes Risks/Benef Reviewed Patient Risk: Low Procedure Risk: Low Anesthetic Plan Anesthetic Plan: MAC: Disposition: Standard PACU
[2024-02-29] MEDS: Tetracaine HCl/PF 0.5% Oph Sol 4 ML DROPS 1 DROP EYE-LEFT (07:20)
[2024-02-29] MEDS: Lactated Ringers 500 ML 50 ML IV (07:20)
[2024-02-29] MEDS: Phenylephrine HCL 2.5% Oph SoL 2 ML BOTTLE 1 DROP EYE-LEFT ×3 (07:21→07:35)
[2024-02-29] MEDS: Ketorolac Tromethamine 0.5% Op 10 ML DROPS 1 DROP EYE-LEFT ×3 (07:21→07:35)
[2024-02-29] MEDS: Cyclopentolate 1 % Ophth Sol 2 ML DRPBTL 1 DROP EYE-LEFT ×3 (07:21→07:35)
[2024-02-29] MEDS: Tropicamide 1 % Ophth Sol 3 ML BTL 1 DROP EYE-LEFT ×3 (07:22→07:35)
[2024-02-29 07:37] VITALS: BP 169/79; PULSE 66; RESP 18; TEMP 36.6; O2SAT 97
--- NOTE | 2024-02-29 08:36 | MHC.SHP ---
Pre-Procedural Eval Section A - 24 Hr Update-Section A only Date of Service: 02/29/24 The patient is an INPATIENT: No Changes since office visit: No Cold of Flu in the past 2 weeks, No New Medical Problems, No Changes in Medication and No Patient answered all questions The patient has been examined within 24 hours of the surgical procedure. The History & Physical has been completed within 30 days and I have reviewed it.: Yes Section B - Complete if H&P > 30 days Chief Complaint: Age-related nuclear cataract, left eye Allergies: Allergies Allergy/AdvReac Type Severity Reaction Status Date / Time No Known Allergies Allergy Verified 02/29/24 07:38 [No Known Allergies*] Plan Diagnosis/Plan: Unchanged I have reviewed the history and physical and performed a pertinent physical examination on my patient. No changes have occurred unless specified. Time Spent With Patient Time: Total time managing care of this patient today ____ minutes.
--- NOTE | 2024-02-29 08:36 | HO.PNOPHT ---
Ophthalmology Procedure Procedure Date of Service: 02/29/24 Ophthalmology Viscoelastic: Healon Duet Dual Pack Pro Ophthalmology Lenses: IOL Acrysof MP - [id number] (20) Procedure Notes: PREOPERATIVE DIAGNOSIS: Decreased visual acuity left eye secondary to cataract POSTOPERATIVE DIAGNOSIS: Same PROCEDURE: Left cataract extraction with intraocular lens insertion SURGEON: Tapan Schmidt M.D. ANESTHESIA: Topical/MAC ESTIMATED BLOOD LOSS: None COMPLICATIONS: None After obtaining informed consent, the patient was brought to the operation room suite and placed in the supine position. After adequate sedation per anesthesia, topical drops of Tetracaine were given to the left eye. The eye was then prepped and draped in the usual sterile fashion. The operating room microscope was then positioned over the operative eye and a lid speculum placed. A paracentesis was created. Viscoelastic was then instilled into the anterior chamber. A three plane incision was then created temporally, utilizing a 2.85 mm keratome. Capsulotomy forceps were then utilized to create a circular tear capsulotomy. Hydrodissection and hydrodelineation were carried out until adequate mobilization of the nucleus occurred. Phacoemulsification was then utilized to remove the dense central nucleus followed by removal of the cortical material utilizing the automated aspiration irrigation unit. Viscoat elastic was instilled into the posterior capsular bag followed by placement of a posterior chamber intraocular lens without difficulty. The residual Viscoat elastic was then removed utilizing the automated IA machine. The wound was check and found to be watertight. The patient tolerated the procedure well and the lid speculum was removed. Intracameral injection of Vigamox 0.1 mL followed by a subtenon injection of Kenalog-40 0.2 mL were administered. The patient will be seen in the a.m.
[2024-02-29 09:00] VITALS: BP 154/71; PULSE 63; RESP 17; TEMP 36.4; O2SAT 96
== END 2024-02-29 09:12 | disposition home or self-care (01) ==
PROVIDERS: PCP Internal Medicine; Visit Provider Ophthalmology
PROC: (CPT 66985; principal; 2024-02-29 08:30)
DX: H25.12 Age-related nuclear cataract, left eye (principal); H52.4 Presbyopia; H18.413 Arcus senilis, bilateral; H11.153 Pinguecula, bilateral; H43.393 Other vitreous opacities, bilateral; E03.9 Hypothyroidism, unspecified; L71.9 Rosacea, unspecified; Z85.828 Personal history of other malignant neoplasm of skin; Z79.899 Other long term (current) drug therapy
CPT/HCPCS: 66984; J2250; J3301; V2630

== ENCOUNTER 2024-03-07 06:18 | Day surgery (SDC) | payer MEDICARE, OTHER, SELFPAY ==
[2024-02-23 07:17] VITALS: BMI 25.4
--- NOTE | 2024-03-03 12:58 | P.CONAN_ITS ---
Documented by User: Cait Millard NP 03/03/24 12:58 HPI - Anesthesia Eval Consult details Narrative: 73yo M for Right Cataract Extraction IOL Insertion Left eye 02/29/24: Midaz 2 PMFSH Active Problems Active Problems: All Active Problems Preop exam for internal medicine (Acute) Encounter for subsequent annual wellness visit (AWV) in Medicare patient (Acute) Encounter for annual wellness visit (AWV) in Medicare patient (Acute) Hypothyroidism (Acute) Past Medical History Medical History Hypothyroidism Family History Family History Father Alzheimers disease Mother Heart disease Colon polyps Other Mental health disorder Surgical History Surgical History Cataract extraction status of left eye Hx of colonoscopy H/O rectal polypectomy History of thyroidectomy, total History of hernia repair History of Problems with Anesthesia: No Social History Social History Housing: House Are you a primary pharmacy care coordinator to a significant other at home: No Do you presently have visiting nurse or other home services: No Alcohol intake: current Alcohol intake frequency: holidays/special occasions only Patient Tobacco Use Status: Never used Tobacco Tobacco use type: Cigarette e-Cigarette/Vaping Use: Never Used Second Hand Smoke Exposure: No Use of substances other than those prescribed or required for medical reasons: Yes Substance Use Type: Marijuana Have you been hit, kicked, punched, or otherwise hurt by someone within the past year? If so, by whom?: No Are you DNR?: No Advance Directives: No Advance Directives Information Provided: Yes Advance Directives on File: No Recently lost weight without trying: No Eating poorly because of decreased appetite: No Nutrition Risks: No Nutritional Risk service: No Current occupational status: retired Cognitive needs: No Hearing needs: No Vision needs: No Meds Allergies Allergy/AdvReac Type Severity Reaction Status Date / Time No Known Allergies Allergy Verified 03/07/24 06:58 [No Known Allergies*] Home Medications ?Medication ?Instructions ?Recorded ?Confirmed ?Last Taken ?Type finasteride 1 mg tablet 1 mg PO DAILY 03/12/20 02/23/24 Unknown History Exam Height,Weight and Vital Signs: Height 5 ft 8 in Weight 75.75 kg Assessment and Plan Assessment Anesthesia Assessment: Chart Reviewed Final Anesthetic Review History of Problems with Anesthesia: No Documented by User: Maribel Ba MD 03/07/24 07:40 [facility] Past Medical History Medical History Hypothyroidism Family History Family History Father Alzheimers disease Mother Heart disease Colon polyps Other Mental health disorder Surgical History Surgical History Cataract extraction status of left eye Hx of colonoscopy H/O rectal polypectomy History of thyroidectomy, total History of hernia repair Social History Social History Housing: House Are you a primary pharmacy care coordinator to a significant other at home: No Do you presently have visiting nurse or other home services: No Alcohol intake: current Alcohol intake frequency: holidays/special occasions only Patient Tobacco Use Status: Never used Tobacco Tobacco use type: Cigarette e-Cigarette/Vaping Use: Never Used Second Hand Smoke Exposure: No Use of substances other than those prescribed or required for medical reasons: Yes Substance Use Type: Marijuana Have you been hit, kicked, punched, or otherwise hurt by someone within the past year? If so, by whom?: No Are you DNR?: No Advance Directives: No Advance Directives Information Provided: Yes Advance Directives on File: No Recently lost weight without trying: No Eating poorly because of decreased appetite: No Nutrition Risks: No Nutritional Risk service: No Current occupational status: retired Cognitive needs: No Hearing needs: No Vision needs: No Meds Allergies Allergy/AdvReac Type Severity Reaction Status Date / Time No Known Allergies Allergy Verified 03/07/24 06:58 [No Known Allergies*] Home Medications ?Medication ?Instructions ?Recorded ?Confirmed ?Last Taken ?Type finasteride 1 mg tablet 1 mg PO DAILY 03/12/20 02/23/24 Unknown History Exam Airway Mallampati Class: II (edentulous) TM Dist: >3cm Neck ROM: Full Denture: Upper and Lower Loose/Missing/Broken Teeth: Yes, Upper and Lower Heart: RRR Lungs: CTA Assessment and Plan Assessment Anesthesia Assessment: Anesthesia Plan Discussed Final Anesthetic Review NPO: Yes ASA Class: II Final Preanesthetic Review: Meds/Allgs Chart Reviewed, Consent Obtained/Reviewed and Anes Risks/Benef Reviewed Patient Risk: Low Procedure Risk: Low Anesthetic Plan Anesthetic Plan: MAC: Disposition: Standard PACU
[2024-03-07 06:31] VITALS: BP 146/72; PULSE 55; RESP 15; TEMP 36.3; O2SAT 98
[2024-03-07] MEDS: Tetracaine HCl/PF 0.5% Oph Sol 4 ML DROPS 1 DROP EYE-RIGHT (06:39)
[2024-03-07] MEDS: Lactated Ringers 500 ML 50 ML IV (06:41)
[2024-03-07] MEDS: Cyclopentolate 1 % Ophth Sol 2 ML DRPBTL 1 DROP EYE-RIGHT ×3 (06:41→06:53)
[2024-03-07] MEDS: Tropicamide 1 % Ophth Sol 3 ML BTL 1 DROP EYE-RIGHT ×3 (06:43→06:54)
[2024-03-07] MEDS: Ketorolac Tromethamine 0.5% Op 10 ML DROPS 1 DROP EYE-RIGHT ×3 (06:44→06:55)
[2024-03-07] MEDS: Phenylephrine HCL 2.5% Oph SoL 2 ML BOTTLE 1 DROP EYE-RIGHT ×3 (06:47→06:56)
--- NOTE | 2024-03-07 07:21 | MHC.SHP ---
Pre-Procedural Eval Section A - 24 Hr Update-Section A only Date of Service: 03/07/24 The patient is an INPATIENT: No Changes since office visit: No Cold of Flu in the past 2 weeks, No New Medical Problems, No Changes in Medication and No Patient answered all questions The patient has been examined within 24 hours of the surgical procedure. The History & Physical has been completed within 30 days and I have reviewed it.: Yes Section B - Complete if H&P > 30 days Chief Complaint: Age-related nuclear cataract, right eye Allergies: Allergies Allergy/AdvReac Type Severity Reaction Status Date / Time No Known Allergies Allergy Verified 03/07/24 06:58 [No Known Allergies*] Plan Diagnosis/Plan: Unchanged I have reviewed the history and physical and performed a pertinent physical examination on my patient. No changes have occurred unless specified. Time Spent With Patient Time: Total time managing care of this patient today ____ minutes.
--- NOTE | 2024-03-07 07:22 | P.PCNO_ITS ---
Ophthalmology Procedure Procedure Date of Service: 03/07/24 Ophthalmology Viscoelastic: Healon Duet Dual Pack Pro Ophthalmology Lenses: IOL Acrysof MP - MA60AC (20) Procedure Notes: PREOPERATIVE DIAGNOSIS: Decreased visual acuity right eye secondary to cataract POSTOPERATIVE DIAGNOSIS: Same PROCEDURE: Right cataract extraction with intraocular lens insertion SURGEON: Tapan Schmidt M.D. ANESTHESIA: Topical/MAC ESTIMATED BLOOD LOSS: None COMPLICATIONS: None After obtaining informed consent, the patient was brought to the operating room suite and placed in the supine position. After adequate sedation per anesthesia, topical drops of Tetracaine were given to the right eye. The eye was then prepped and draped in the usual sterile fashion. The operating room microscope was then positioned over the operative eye and a lid speculum placed. A paracentesis was created. Viscoelastic was then instilled into the anterior chamber. A three plane incision was then created temporally, utilizing a 2.85 mm keratome. Capsulotomy forceps were then utilized to create a circular tear capsulotomy. Hydrodissection and hydrodelineation were carried out until adequate mobilization of the nucleus occurred. Phacoemulsification was then utilized to remove the dense central nucl eus followed by removal of the cortical material utilizing the automated aspiration irrigation unit. Viscoelastic was instilled into the posterior capsular bag followed by placement of a posterior chamber intraocular lens without difficulty. The residual Viscoelastic was then removed utilizing the automated IA machine. The wound was checked and found to be watertight. The patient tolerated the procedure well and the lid speculum was removed. Intracameral injection of Vigamox 0.1 mL followed by a subtenon injection of Kenalog-40 0.2 mL were administered. The patient will be seen in the a.m.
[2024-03-07 07:54] VITALS: BP 131/72; PULSE 62; RESP 16; TEMP 36.1; O2SAT 99
[2024-03-07 08:09] VITALS: BP 135/79; PULSE 60; RESP 20; TEMP 36.1; O2SAT 99
== END 2024-03-07 08:06 | disposition home or self-care (01) ==
PROVIDERS: PCP Internal Medicine; Visit Provider Ophthalmology
PROC: (CPT 66985; principal; 2024-03-07 07:30)
DX: H25.11 Age-related nuclear cataract, right eye (principal); H52.4 Presbyopia; H18.413 Arcus senilis, bilateral; H43.399 Other vitreous opacities, unspecified eye; H11.153 Pinguecula, bilateral; E03.9 Hypothyroidism, unspecified; Z85.828 Personal history of other malignant neoplasm of skin; Z79.899 Other long term (current) drug therapy; Z98.890 Other specified postprocedural states
CPT/HCPCS: 66984; J2250; J3301; V2630

== ENCOUNTER 2024-04-01 08:42 | Outpatient (REF) | payer MEDICARE, OTHER, SELFPAY ==
[2024-04-01 09:50] LABS: Cholesterol 216 mg/dL (<200); Glucose Fasting 120 mg/dL (60-99); HDL Cholesterol 56 mg/dL (>40); LDL Cholesterol Calculated 148 mg/dL (<100); Triglycerides 60 mg/dL (<150)
== END 2024-04-01 08:43 | disposition home or self-care (01) ==
LOC: HO.LAB 08:42
PROVIDERS: PCP Internal Medicine; Visit Provider Internal Medicine
DX: R73.9 Hyperglycemia, unspecified (principal); Z13.29 Encounter for screening for other suspected endocrine disorder; Z13.220 Encounter for screening for lipoid disorders
CPT/HCPCS: 36415; 80061; 82947; 84443

== ENCOUNTER 2024-04-18 08:17 | Outpatient (AMB) | payer MEDICARE, OTHER, SELFPAY ==
--- NOTE | 2024-04-18 08:23 | MHC.PC.OV ---
Vital Signs 04/18/24 08:25 Height 5 ft 8 in Weight 171 lb 6 oz BMI 26.1 BP 120/80 Blood Pressure Location Lt brachial Position Sitting Pulse 59 Pulse Source Pulse Oximeter Pulse Oximetry (%) 98 Oxygen Delivery Method Room Air Intake Visit Reasons: 6mo f/u Intake Note: Patient is here to follow up on Hypothyroidism. Music Promoter Required: No Teachers Assistant: Not Required per policy Accompanied by: Self / Same As Patient Allergies No Known Allergies [No Known Allergies*] Allergy (Verified 04/18/24 08:25) Medication List - Last Reconciled 04/18/24 by Christo Rosenberg MD finasteride 1 mg PO DAILY lactulose 20 grams (30 mL) PO DAILY PRN levothyroxine 150 mcg PO DAILY sertraline (Zoloft) 50 mg PO DAILY zolpidem 5 mg PO BEDTIME PRN Tobacco use date assessed: 04/18/24 Fall risk assessment: No Falls in past year Last assessed Fall Risk: 04/18/24 Dental Screening Dental Screen Date: 04/18/24 Did you have a dental visit in the last 12 months?: Yes Did you have a dental problem in the last 6 months where you did not have access to dental care?: No Was dental information given to patient?: No (Dentures) HPI 6mo f/u HPI Details hypothyroidism on rx; TSH high; will adjust dose; feels well PFSH Medical History Hypothyroidism Surgical History (Updated 04/18/24 @ 08:29 by BRIDGET Lopez) History of cataract surgery Cataract extraction status of left eye Hx of colonoscopy H/O rectal polypectomy History of thyroidectomy, total History of hernia repair Family History Father Alzheimers disease Mother Heart disease Colon polyps Other Mental health disorder Social History (Updated 04/18/24 @ 08:29 by BRIDGET Lopez) Housing: House Are you a primary healthcare administration internship to a significant other at home: No Do you presently have visiting nurse or other home services: No Alcohol intake: current Alcohol intake frequency: a few times a week Patient Tobacco Use Status: Never used Tobacco Tobacco use type: Cigarette e-Cigarette/Vaping Use: Never Used Second Hand Smoke Exposure: No Substance Use Type: Marijuana service: No Current occupational status: retired Cognitive needs: No Hearing needs: No Vision needs: No Questionnaire PHQ-9 Over the last 2 weeks, how often have you been bothered by any of the following problems? 1. Little interest or pleasure in doing things: not at all 2. Feeling down, depressed, or hopeless: not at all 3. Trouble falling or staying asleep, or sleeping too much: not at all 4. Feeling tired or having little energy: not at all 5. Poor appetite or overeating: not at all 6. Feeling bad about yourself - or that you are a failure or have let yourself or your family down: not at all 7. Trouble concentrating on things, such as reading the newspaper or watching television: not at all 8. Moving or speaking so slowly that other people could have noticed. Or the opposite - being so fidgety or restless that you have been moving around a lot more than usual: not at all 9. Thoughts that you would be better off or of hurting yourself in some way: not at all Total score: 0 Depression Screening Interpretation: Negative Depression Screening Done: Yes Source: Developed by Drs. Jean Marie Membreno, Mary Sanchez, Uzair Gilbert and colleagues, with an educational saul from [employer]. Thrive Questionnaire Date Thrive assessed: 04/18/24 I am a: Patient What is your living situation today?: I have a steady place to live Within the past 12 months, did the food you bought not last and you didn't have the money to get more?: Never true Within the past 12 months, did you worry whether your food would run out before you got money to buy more?: Never true Do you have trouble paying for medicines?: No Do you have trouble getting transportation to medical appointments?: No Do you have trouble paying your heating and electricity bill?: No Do you have trouble taking care of your child, family member or friend?: No Do you have trouble with day-to-day activities such as bathing, preparing meals, shopping, managing finances, etc.?: No Are you currently unemployed and looking for a job?: No Are you interested in more education?: No Currently or been in a relationship where the following occur: No concerns reported THRIVE Score: 0 AUDIT C Alcohol Use Questionnaire (AUDIT-C) 1. How often do you have a drink containing alcohol?: 2-3 times a week 2. How many drinks containing alcohol do you have on a typical day when you are drinking?: 1 or 2 Total Score: 3 MANUEL-7 AMB Questionnaire MANUEL-7 Date MANUEL - 7 assessed: 04/18/24 Feeling nervous, anxious, or on edge: 0 = Not at all Not being able to stop or control worryin = Not at all Worrying too much about different things: 0 = Not at all Trouble relaxin = Not at all Being so restless that it is hard to sit still: 0 = Not at all Becoming easily annoyed or irritable: 0 = Not at all Feeling afraid as if something awful might happen: 0 = Not at all Total MANUEL-7 score (0-4 normal; 5-9 mild; 10-14 moderate; 15-21 severe): 0 Source: Developed by Drs. Jean Marie Membreno, Mary Sanchez, Uzair Gilbert and colleagues, with an educational saul from [employer]. Review of Systems Const Denies chills, Denies headache(s) and Denies weight loss ENT Denies headache(s) Card Denies chest pain, Denies syncope, Denies irregular heart rhythm and Denies dyspnea Resp Denies chest congestion, Denies cough and Denies dyspnea GI Denies abdominal pain, Denies change in stool character, Denies nausea and Denies vomiting Musc Denies deformity and Denies joint swelling Neuro Denies syncope and Denies headache(s) Physical exam (Primary Care) Vital Signs: Last Vital Signs Pulse 59 04/18/24 08:25 BP 120/80 04/18/24 08:25 Pulse Ox 98 04/18/24 08:25 Oxygen Delivery Method Room Air 04/18/24 08:25 BMI result Body Mass Index 26.1 Tobacco/Smoking Status: Tobacco use Status Tobacco use date assessed 04/18/24 04/18/24 08:30 Patient Tobacco Use Status Never used Tobacco 04/18/24 08:30 Tobacco use type Cigarette 04/18/24 08:30 e-Cigarette/Vaping Use Never Used 04/18/24 08:30 PHQ-9: PHQ-9 Score PHQ-9: Total score 0 04/18/24 08:30 Depression Screening Interpretation: Negative Thrive Assessment: Date of Thrive Assessment Date Thrive assessed 04/18/24 04/18/24 08:30 Currently or been in a relationship where the following occur: No concerns reported Const General: cooperative, comfortable, no acute distress and alert Neck Neck: Yes no lymphadenopathy Thyroid: Thyroid normal Resp Effort & Inspection: normal respiratory effort Auscultation: clear to auscultation bilaterally Percussion: percussion normal Cardio Jugular venous distension: no JVD Palpation: normal PMI Rate: regular rate Rhythm: regular rhythm Heart sounds: S1 normal heart sound present and S2 normal heart sound present GI Inspection: Yes normal to inspection Palpation (GI): No hepatosplenomegaly present Skin General skin exam: no rashes or lesions noted Extrem General: Yes no clubbing, cyanosis or edema Coding Level of Care Code Est Pt Level 3 (01519) Diagnoses Hypothyroidism E03.9 Assessment & Plan Assessment & Plan (1) Hypothyroidism: Code(s): E03.9 - Hypothyroidism, unspecified Category: Medical Plan: new rx sent Medications: New levothyroxine 150 mcg PO DAILY 30 tabs 2RF Discontinued levothyroxine Discontinued Reason: Doctor's Order 137 mcg PO DAILY 90 caps 3RF
[2024-04-18 08:25] VITALS: BP 120/80; PULSE 59; O2SAT 98; BMI 26.1
== END 2024-04-18 08:45 | disposition home or self-care (01) ==
PROVIDERS: PCP Internal Medicine; Visit Provider Internal Medicine
DX: E03.9 Hypothyroidism, unspecified (principal)

== ENCOUNTER → 2024-04-18 08:17 | Outpatient (BNVA) | payer MEDICARE, OTHER, SELFPAY | PROVIDERS: PCP Internal Medicine; Visit Provider Internal Medicine | DX: E03.9 Hypothyroidism, unspecified (principal) | CPT/HCPCS: 96127; 99212 ==

== ENCOUNTER 2024-05-10 06:50 | Day surgery (SDC) | payer MEDICARE, OTHER, SELFPAY ==
[2024-05-06 14:32] VITALS: BMI 26.3
--- NOTE | 2024-05-09 11:58 | P.CONAN_ITS ---
Documented by User: Cait Millard NP 05/09/24 11:58 HPI - Anesthesia Eval Consult details Narrative: 23yo M for Colonoscopy PMFSH Active Problems Active Problems: All Active Problems Preop exam for internal medicine (Acute) Encounter for subsequent annual wellness visit (AWV) in Medicare patient (Acute) Encounter for annual wellness visit (AWV) in Medicare patient (Acute) Hypothyroidism (Acute) Past Medical History Medical History Hypothyroidism Family History Family History Father Alzheimers disease Mother Heart disease Colon polyps Other Mental health disorder Surgical History Surgical History (Updated 05/06/24 @ 14:30 by Hattie Interiano RN) Hx of bilateral cataract extraction Hx of colonoscopy H/O rectal polypectomy History of thyroidectomy, total History of hernia repair History of Problems with Anesthesia: No Social History Social History (Updated 04/18/24 @ 08:29 by BRIDGET Lopez) Housing: House Are you a primary direct care specialist to a significant other at home: No Do you presently have visiting nurse or other home services: No Alcohol intake: current Alcohol intake frequency: a few times a week Patient Tobacco Use Status: Former Tobacco user Tobacco use type: Cigarette e-Cigarette/Vaping Use: Never Used Second Hand Smoke Exposure: No Use of substances other than those prescribed or required for medical reasons: Yes Substance Use Type: Marijuana Substance Use Type Other:: gummies Are you DNR?: No Advance Directives: No Advance Directives Information Provided: Yes Nutrition Risks: No Nutritional Risk Poor oral hygiene: No service: No Current occupational status: retired Cognitive needs: No Hearing needs: No Vision needs: No Meds Allergies Allergy/AdvReac Type Severity Reaction Status Date / Time No Known Allergies Allergy Verified 04/18/24 08:25 [No Known Allergies*] Home Medications ?Medication ?Instructions ?Recorded ?Confirmed ?Last Taken ?Type finasteride 1 mg tablet 1 mg PO DAILY 03/12/20 05/06/24 Unknown History Exam Height,Weight and Vital Signs: Height 5 ft 8 in Weight 78.471 kg Assessment and Plan Assessment Anesthesia Assessment: Chart Reviewed Final Anesthetic Review History of Problems with Anesthesia: No Documented by User: Elisa Rivera MD 05/10/24 07:55 PMFSH Past Medical History Medical History Hypothyroidism Family History Family History Father Alzheimers disease Mother Heart disease Colon polyps Other Mental health disorder Family history of problems with anesthesia: No Surgical History Surgical History (Updated 05/06/24 @ 14:30 by Hattie Interiano RN) Hx of bilateral cataract extraction Hx of colonoscopy H/O rectal polypectomy History of thyroidectomy, total History of hernia repair Social History Social History (Updated 04/18/24 @ 08:29 by BRIDGET Lopez) Housing: House Are you a primary direct care specialist to a significant other at home: No Do you presently have visiting nurse or other home services: No Alcohol intake: current Alcohol intake frequency: a few times a week Patient Tobacco Use Status: Former Tobacco user Tobacco use type: Cigarette e-Cigarette/Vaping Use: Never Used Second Hand Smoke Exposure: No Use of substances other than those prescribed or required for medical reasons: Yes Substance Use Type: Marijuana Substance Use Type Other:: gummies Are you DNR?: No Advance Directives: No Advance Directives Information Provided: Yes Nutrition Risks: No Nutritional Risk Poor oral hygiene: No service: No Current occupational status: retired Cognitive needs: No Hearing needs: No Vision needs: No Meds Allergies Allergy/AdvReac Type Severity Reaction Status Date / Time No Known Allergies Allergy Verified 04/18/24 08:25 [No Known Allergies*] Home Medications ?Medication ?Instructions ?Recorded ?Confirmed ?Last Taken ?Type finasteride 1 mg tablet 1 mg PO DAILY 03/12/20 05/06/24 Unknown History Exam Airway Mallampati Class: III TM Dist: >3cm Neck ROM: Full Denture: Upper and Lower Assessment and Plan Assessment Anesthesia Assessment: Anesthesia Plan Discussed Final Anesthetic Review Family History of Problems with Anesthesia: No NPO: Yes ASA Class: II Final Preanesthetic Review: No Changes in Pt Med Stat, Meds/Allgs Chart Reviewed, Consent Obtained/Reviewed and Anes Risks/Benef Reviewed Patient Risk: Low Procedure Risk: Low Anesthetic Plan Anesthetic Plan: TIVA Disposition: Standard PACU
--- OUTSIDE RECORDS SUMMARY | 2024-05-10 06:53 | XMS_ITS ---
Author Organization [facility] Address [address] [place] [address] Care Team Providers Care Vice Principal Name Role Phone Christo Rosenberg MD Primary Care Provider Keyshawn Malik Jr ALLERGIES No Known Allergies REASON FOR VISIT Patient presents today for a COLON SCREENING MEDICATIONS Medication SIG (Take, Route, Frequency, Duration) Notes Start Date End Date Status Zolpidem Tartrate 5 MG 1 tablet at bedti nj Orally prn as needed Active Multi Vitamin/Minerals - as directed Ora lly once a day Active MiraLax (colon prep) 17 GM/SCOOP mixed with Gatorade or Crystal Light Orally begin at 5:00 p.m. the day before the procedure for 1 day 03/28/2024 Active Synthroid 150 MCG 1 tablet on an empty stomach in the morning Orally Once a day Active Finasteride 1 MG 1 tablet Orally Once a day Active PROBLEMS Problem Type ICD Code Onset Dates Problem Status W/U Status Risk SNOMED Code Notes Problem Slow transit constipation (K59.01) Active confirmed 75802692 Problem Excessive gas (R14.3) Active confirmed 61880749 VITAL SIGNS BMI 26.30 kg/m2 03/28/2024 Blood pressure systolic 000 mm Hg 03/28/20 24 Blood pressure diastolic 00 mm Hg 024 Height 68 in 03/28/2024 Temperature 97.3 degrees Fahrenheit 03/28/20 24 Weight 173 lbs 03/28/2024 Encounters Encounter Location Date Provider Diagnosis [facility] [address] [place] [phone] 03/28/2024 Keyshawn Serrano Jr Colon cancer screening Z12.11 ; Slow transit constipation K59.01 and Excessive gas R14.3 ASSESSMENTS Encounter Date Diagnosis Assessment Notes Treatment Notes Treatment Clinical Notes 03/28/2024 Colon cancer screening (ICD-10 - Z12.11) Colonoscopy material was printed 03/28/2024 Slow transit constipation (ICD-10 - K59.01) 03/28/2024 Excessive gas (ICD-10 - R14.3) PLAN OF TREATMENT Medication Medication Name Sig Start Date Stop Date Notes MiraLax (colon prep) 17 GM/SCOOP mixed with Gatorade or Crystal Light Orally begin at 5:00 p.m. the day before the procedure for 1 day 03/28/2024 Treatment Notes Assessment Notes Colon cancer screening Colonoscopy mater ial was printed Future Test Test Name Order Date COLONOSCOPY 03/28/2024 Next Appt Details Follow Up: 1 Year, Reason: Provider Name:Keyshawn hanson Jr, 05/10/2024 08:20:00 AM, [address] [place] [address] , [place], [place], [phone], Progress Notes * Examination Category Sub-Category Detail Notes General Examination GENERAL APPEARANCE: in no ac clif distress HEAD: normocephalic EYES: sclera non-icteric NECK/THYROID: no lymphadenopathy HEART: S1, S2 normal, no mu rmurs CHEST: normal shape and exp ansion LUNGS: clear to auscultatio n bilaterally ABDOMEN: soft, nontender, non distended, bowel sounds present, no organomegaly SKIN: anicteric EXTREMITIES: no clubbing, cyanosi s, or edema PSYCH: cognitive function i ntact ORAL CAVITY: mucosa moist
--- OUTSIDE RECORDS SUMMARY | 2024-05-10 06:53 | XMS_ITS ---
Author Organization [facility] Address [address] [place] [address] Care Team Providers Care Maintenance Controller Name Role Phone Christo Rosenberg MD Primary Care Provider Keyshawn Malik Jr REASON FOR VISIT screening Encounters Encounter Location Date Provider Diagnosis [facility] [place] [address] [place] [phone] 05/10/2024 Keyshawn Serrano Jr PLAN OF TREATMENT Next Appt Details Provider Name:Keyshawn hanson Jr, 05/10/2024 08:20:00 AM, [address] [place] [address], [phone],
--- OUTSIDE RECORDS SUMMARY | 2024-05-10 06:53 | XMS_ITS | Patient Health Record ---
Author Organization [facility] Address [address] [place] [address] Care Team Providers Care Public Health Officer Name Role Phone Christo Rosenberg MD Primary Care Provider Keyshawn Malik Jr Unavailable ALLERGIES No Known Allergies REASON FOR REFERRAL No Information MEDICATIONS Medication SIG (Take, Route, Frequency, Duration) Notes Start Date End Date Status Zolpidem Tartrate 5 MG 1 tablet at bedti oh Orally prn as needed Active Multi Vitamin/Minerals - as directed Ora lly once a day Active Synthroid 150 MCG 1 tablet on an empty stomach in the morning Orally Once a day Active Finasteride 1 MG 1 tablet Orally Once a day Active MiraLax (colon prep) 17 GM/SCOOP mixed with Gatorade or Crystal Light Orally begin at 5:00 p.m. the day before the procedure for 1 day 03/28/2024 Active IMMUNIZATIONS Vaccine Route Administration Date Status Comme nts Influenza Unknown 02/10/2018 Administered Influenza Unknown 02/23/2024 Administered SOCIAL HISTORY Sex Assigned At : Social History Observation Description Sex Assigned At Unknown PROBLEMS Problem Type ICD Code Onset Dates Problem Status W/U Status Risk SNOMED Code Notes Problem Colon cancer screening (Z12.11) Active confirmed 923846868 Problem Slow transit constipation (K59.01) Active confirmed 22453116 Problem Excessive gas (R14.3) Active confirmed 90677158 VITAL SIGNS Temperature 97.3 degrees Fahrenheit 03/28/2024 Blood pressure diastolic 00 mm Hg 03/28/2024 Height 68 in 03/28/2024 Blood pressure systolic 000 mm Hg 03/28/2024 Weight 173 lbs 03/28/2024 BMI 26.30 kg/m2 03/28/2024 Encounters Encounter Location Date Provider Diagnosis [facility] Outpatient [address] [place] [id number] 05/10/2024 Keyshawn Serrano Jr [facility] [address] [place] [address] 03/28/2024 Keyshawn Serrano Jr Colon cancer screening Z12.11 ; Slow transit constipation K59.01 and Excessive gas R14.3 ASSESSMENTS Encounter Date Diagnosis Assessment Notes Treatment Notes Treatment Clinical Notes 03/28/2024 Colon cancer screening (ICD-10 - Z12.11) Colonoscopy material was printed 03/28/2024 Slow transit constipation (ICD-10 - K59.01) 03/28/2024 Excessive gas (ICD-10 - R14.3) PLAN OF TREATMENT Future Test Test Name Order Date COLONOSCOPY 04/21/2013 COLONOSCOPY 12/22/2018 COLONOSCOPY 03/28/2024 Next Appt Details Provider Name:Keyshawn hanson Jr, 05/10/2024 08:20:00 AM, [address] [facility] , [place], [place], [phone], Insurance Providers Payer Name Payer Address Payer Phone Subscriber Number Group Number Insured Name Patient Relationship to Insured Coverage Start Date Coverage End Date MEDICARE OF [place] [address] [place], [place] [id number] [phone] [id number] MARVIN LOPEZ Self - patient is the insured [employer] ([employer]) [address] [place] [address] [phone] [id number] MARVIN LOPEZ Self - patient is the insured MEDICAL (GENERAL) HISTORY Medical History History ICD Code Colonoscopy 03/31, normal, s omewhat limited and right colon with stool. 5 year recall. Hypothyroidism BPH Insomnia Surgical History Surgery Date(Month/Year) thyroidectomy Skin cancer Right inguinal herniorrhaphy 2019 Bilateral cataract repairs
[2024-05-10 07:23] VITALS: BMI 26.1
--- NOTE | 2024-05-10 07:34 | MHC.SHP ---
Pre-Procedural Eval Section A - 24 Hr Update-Section A only Date of Service: 05/10/24 Section B - Complete if H&P > 30 days Chief Complaint: screening Details of Present Illness: see H*P no changes Relevant Family History (Specify if Yes): No Relevant Social History: None Present Medications: see Short Stay Collaborative assessment Medical History: No relevant PMH Allergies: Allergies Allergy/AdvReac Type Severity Reaction Status Date / Time No Known Allergies Allergy Verified 04/18/24 08:25 [No Known Allergies*] Review of Systems Sugical H&P ROS: Negative: Constitution, Cardiovascular, Respiratory, Neurological, Psychiatric, Hem-Onc, Allergic/Immunologic, Gastrointestinal, Genitourinary, Musculoskeletal, Integumentary, Endocrine and Eyes/Ears/Nose/Throat Exam Surgical H&P Exam: Normal: HEENT, Normal: Heart, Normal: Lungs, Normal: Extremities, Normal: Abdomen, Normal: Skin and Normal: Neurological Plan Diagnosis/Plan: Unchanged I have reviewed the history and physical and performed a pertinent physical examination on my patient. No changes have occurred unless specified. Time Spent With Patient Time: Total time managing care of this patient today ____ minutes.
[2024-05-10 07:35] VITALS: BP 151/78; PULSE 69; RESP 16; TEMP 36.5; O2SAT 98
[2024-05-10] MEDS: Lactated Ringers 1,000 ML 100 ML IVCONT (07:41)
[2024-05-10 09:04] VITALS: BP 130/70; PULSE 58; RESP 14; TEMP 36.1; O2SAT 97
--- NOTE | 2024-05-10 09:12 | OP_ITS ---
DATE OF SERVICE: 05/10/2024 SURGEON: Keysahwn Serrano MD INDICATIONS: Colon cancer screening. PREOPERATIVE DIAGNOSIS: POSTOPERATIVE DIAGNOSIS: PROCEDURE PERFORMED: Colonoscopy to the terminal ileum with biopsy. ESTIMATED BLOOD LOSS: COMPLICATIONS: ANESTHESIA: Monitored anesthesia care. ASSISTANTS: SPECIMENS: DESCRIPTION OF PROCEDURE: A history and physical was performed. The risks and benefits of the procedure were explained to the patient and informed consent was obtained. The patient was placed in the left lateral decubitus position. A digital rectal exam was performed and was found to be normal. The Olympus pediatric video colonoscope was introduced into the rectum and advanced to the cecum. The cecum was identified by transillumination, palpation, and identification of ileocecal valve. Examination was performed and the scope was removed. He tolerated the procedure well and was returned to recovery area in stable condition. FINDINGS: The terminal ileum was briefly glimpsed. This appeared normal. The visualized colonic mucosa was normal. The quality of the prep was poor with a large amount of liquid stool limiting the sensitivity examination for detection of small polyps. This was washed and suctioned, but there was undigested food, which did not allow complete suctioning. Areas not well seen including the right colon and descending and sigmoid colon. A single polyp was identified in the right colon measuring less than 5 mm. This was removed with biopsy forceps. No other polyps were identified. Retroflexed examination was not possible due to retained stool. IMPRESSION: Colon polyp. RECOMMENDATION: Follow up the biopsy results. MD MAGALIS Rod/BLANCA / [id number]
[2024-05-10 09:18] VITALS: BP 111/68; PULSE 58; RESP 16; TEMP 36.2; O2SAT 98
== END 2024-05-10 09:46 | disposition home or self-care (01) ==
PROVIDERS: PCP Internal Medicine; Visit Provider Internal Medicine Gastroenterology
PROC: 0DJD8ZZ Inspection of Lower Intestinal Tract, Via Natural or Artificial Opening Endoscopic (ICD-10-PCS; CPT 45378; principal; 2024-05-10 08:20)
DX: Z12.11 Encounter for screening for malignant neoplasm of colon (principal); Z86.0101 Personal history of adenomatous and serrated colon polyps; Z83.719 Family history of colon polyps, unspecified; D12.2 Benign neoplasm of ascending colon; R14.3 Flatulence; K59.01 Slow transit constipation; K44.9 Diaphragmatic hernia without obstruction or gangrene; N40.0 Benign prostatic hyperplasia without lower urinary tract symptoms; E03.9 Hypothyroidism, unspecified; G47.00 Insomnia, unspecified; F51.9 Sleep disorder not due to a substance or known physiological condition, unspecified; Z85.828 Personal history of other malignant neoplasm of skin; Z79.899 Other long term (current) drug therapy; Z98.890 Other specified postprocedural states; Z87.891 Personal history of nicotine dependence
CPT/HCPCS: 45380; 88305; J2003; J2704

== ENCOUNTER 2024-10-10 06:59 | Outpatient (REF) | payer MEDICARE, OTHER, SELFPAY ==
--- OUTSIDE RECORDS SUMMARY | 2024-05-10 04:20 | XMS_ITS ---
Author Organization [facility] Address [address] [place] [address] Care Team Providers Care Barrel Marker Name Role Phone Shakira BARNES, Christo Primary Care Provider Keyshawn Malik Jr REASON FOR VISIT screening Encounters Encounter Location Date Provider Diagnosis [facility] [place] [place] [address] [place], [place] [phone] 05/10/2024 Keyshawn Serrano Jr Colon cancer screening Z12.11 ; Colon polyps K63.5 and Personal history of colonic polyps Z86.0100 Assessments Encounter Date Diagnosis (ICD Code) Assessment Notes Treatment Notes Treatment Clinical Notes Section Notes 05/10/2024 Colon cancer screening (ICD-10 - Z12.11) 05/10/2024 Colon polyps (ICD-10 - K63.5) 05/10/2024 Personal history of colonic polyps (ICD-10 - Z86.0100) Plan Of Treatment No Information Progress Notes * MARVIN LOPEZ CDOB:1950 (74 yo M)Acc No.[id number]:05/10/2024 COLON WITH MAC Patient: MARVIN WOOD Keron Provider: Natalie Serrano MD :1950 A ge:73 Y S ex:Male Date:05/10/2024 Address:[address] [place], [place] [phone] Pcp:Christo Rosenberg MD Subjective: * Chief Complaints: * 1 . Screening. * Medical History: Objective: * Vitals: Assessment: * Assessment: 1. C olon cancer screening - Z12.11 (Primary) 2 . C olon polyps - K63.5? 3. P ersonal history of colonic polyps - Z86.0100 Plan: * Treatment: * Procedure Codes: G 0105 COLOREC CANCR SCR; COLNSCPY HI RISK, 0529F INTRVL 3+YRS PTS CLNSCP DOCD * * The named appointment provid er may or may not be the originator of this progress note, and it is not deemed complete until electronically signed by the appointment provider. Sign off status: Pending * Provider: Natalie Serrano MD Date: 0 05/10/2024 Generated for John purdy/Brittany/Jamelitting on: 0 10/10/2024 07:01 AM EDT
[2024-10-10 08:42] LABS: Thyroid Stimulating Hormone 2.81 uIU/mL (0.32-4.0)
== END 2024-10-10 07:00 | disposition home or self-care (01) ==
LOC: HO.LAB 06:59
PROVIDERS: PCP Internal Medicine; Visit Provider Internal Medicine
DX: E03.9 Hypothyroidism, unspecified (principal)
CPT/HCPCS: 36415; 84439; 84443

== ENCOUNTER 2024-10-20 08:41 | Outpatient (AMB) | payer MEDICARE, OTHER, SELFPAY ==
--- OUTSIDE RECORDS SUMMARY | 2024-05-10 04:20 | XMS_ITS ---
Author Organization [facility] Address [address] [place] [address] Care Team Providers Care Water Pollution Control Inspector Name Role Phone Shakira BARNES, Christo Primary Care Provider Keyshawn Malik Jr REASON FOR VISIT screening Encounters Encounter Location Date Provider Diagnosis [facility] [place] Out[place] [address] [place], [place] [phone] 05/10/2024 Keyshawn Serrano Jr Colon cancer screening [...] * MARVIN LOPEZ CDOB:1950 (74 yo M)Acc No.[id number]:05/10/2024 COLON WITH MAC Patient: MARVIN WOOD Keron Provider: Natalie Serrano MD :1950 A ge:73 Y S ex:Male Date:05/10/2024 Address:[address] [place], [place] [phone] Pcp:Christo Rosenberg MD Subjective: * Chief Complaints: [...] 05/10/2024 Generated for John purdy/Brittany/Jamelitting on: 0 10/20/2024 08:55 AM EDT
[2024-10-20 08:49] VITALS: BP 134/78; PULSE 54; O2SAT 96; BMI 25.4
--- NOTE | 2024-10-20 08:49 | A.OFFPC_ITS ---
Vital Signs 10/20/24 08:49 Height 5 ft 8 in Weight 167 lb 4 oz BMI 25.4 BP 134/78 Blood Pressure Location Lt brachial Position Sitting Pulse 54 Pulse Source Pulse Oximeter Pulse Oximetry (%) 96 Oxygen Delivery Method Room Air Intake Visit Reasons: Transfer Care from Dr. Rosenberg/ lucian f/u [employer] Operator Required: No Accompanied by: Self / Same As Patient Allergies No Known Allergies (No Known Allergies*) Allergy (Verified 10/20/24 09:20) Medication List - Last Reconciled 10/20/24 by Sergio Faust MD finasteride 1 mg PO DAILY lactulose 20 grams (30 mL) PO DAILY PRN Synthroid (levothyroxine) 150 mcg PO DAILY NS zolpidem 5 mg PO BEDTIME PRN Tobacco use date assessed: 10/20/24 Fall risk assessment: No Falls in past year Last assessed Fall Risk: 10/20/24 Dental Screening Dental Screen Date: 10/20/24 Did you have a dental visit in the last 12 months?: Yes Did you have a dental problem in the last 6 months where you did not have access to dental care?: No Was dental information given to patient?: Patient has dentist HPI Transfer Care from Dr. Rosenberg/ lucian f/u HPI Details Patient comes in today for his follow up visit - is transferring care over from Dr. Rosenberg, who retired from the practice a few months ago States that he's had problems sleeping at night (not sleeping well) for years and needs his Zolpidem Rx refilled today He reports experiencing on and off heartburns at night lately and takes OTC Omeprazole PRN, which he states help States that he feels okay otherwise He denies any headaches or dizziness Denies any chest pains, no SOB No nausea/vomiting, no abdominal pain No change in bowel habits noted He had his TFTs done a couple of weeks ago - to discuss his results COUNT INCLUDES THE [facility] Medical History (Updated 10/20/24 @ 09:31 by Sergio Faust MD) Benign prostatic hyperplasia with lower urinary tract symptoms Insomnia Pure hypercholesterolemia Acquired hypothyroidism Surgical History (Updated 10/20/24 @ 10:09 by Sergio Faust MD) Hx of bilateral cataract extraction Hx of colonoscopy H/O rectal polypectomy History of thyroidectomy, total History of hernia repair Family History Father Alzheimers disease Mother Heart disease Colon polyps Other Mental health disorder Social History Housing: House Are you a primary director long term care to a significant other at home: No Do you presently have visiting nurse or other home services: No Alcohol intake: current Alcohol intake frequency: a few times a week Patient Tobacco Use Status: Former Tobacco user Tobacco use type: Cigarette e-Cigarette/Vaping Use: Never Used Second Hand Smoke Exposure: No Substance Use Type: Marijuana service: No Current occupational status: retired Cognitive needs: No Hearing needs: No Vision needs: No Questionnaire PHQ-9 Over the last 2 weeks, how often have you been bothered by any of the following problems? 1. Little interest or pleasure in doing things: not at all 2. Feeling down, depressed, or hopeless: not at all 3. Trouble falling or staying asleep, or sleeping too much: more than half the days 4. Feeling tired or having little energy: not at all 5. Poor appetite or overeating: not at all 6. Feeling bad about yourself - or that you are a failure or have let yourself or your family down: not at all 7. Trouble concentrating on things, such as reading the newspaper or watching television: not at all 8. Moving or speaking so slowly that other people could have noticed. Or the opposite - being so fidgety or restless that you have been moving around a lot more than usual: not at all 9. Thoughts that you would be better off or of hurting yourself in some way: not at all Total score: 2 Depression Screening Interpretation: Negative Depression Screening Done: Yes 27861 - PHQ-9 Billing: Yes Source: Developed by Drs. Jean Marie Membreno, Mary Sanchez, Uzair Gilbert and colleagues, with an educational saul from [employer]. Thrive Questionnaire Date Thrive assessed: 10/20/24 I am a: Patient What is your living situation today?: I have a steady place to live Within the past 12 months, did the food you bought not last and you didn't have the money to get more?: Never true Within the past 12 months, did you worry whether your food would run out before you got money to buy more?: Never true Do you have trouble paying for medicines?: No Do you have trouble getting transportation to medical appointments?: No Do you have trouble paying your heating and electricity bill?: No Do you have trouble taking care of your child, family member or friend?: No Do you have trouble with day-to-day activities such as bathing, preparing meals, shopping, managing finances, etc.?: No Are you currently unemployed and looking for a job?: No Are you interested in more education?: No Please select the resources that you would like help with: None Currently or been in a relationship where the following occur: No concerns reported THRIVE Score: 0 AUDIT C Alcohol Use Questionnaire (AUDIT-C) 1. How often do you have a drink containing alcohol?: 2-3 times a week 2. How many drinks containing alcohol do you have on a typical day when you are drinking?: 1 or 2 3. How often do you have six or more drinks on one occasion?: Never Total Score: 3 Score Reviewed/Action Taken: Yes MANUEL-7 AMB Questionnaire MANUEL-7 Date MANUEL - 7 assessed: 10/20/24 Feeling nervous, anxious, or on edge: 0 = Not at all Not being able to stop or control worryin = Not at all Worrying too much about different things: 0 = Not at all Trouble relaxin = Not at all Being so restless that it is hard to sit still: 0 = Not at all Becoming easily annoyed or irritable: 0 = Not at all Feeling afraid as if something awful might happen: 0 = Not at all Total MANUEL-7 score (0-4 normal; 5-9 mild; 10-14 moderate; 15-21 severe): 0 Source: Developed by Drs. Jean Marie Membreno, Mary Sanchez, Uzair Gilbert and colleagues, with an educational saul from [employer]. Review of Systems Const Denies chills, Reports difficulty sleeping, Denies fatigue, Denies fever(s) and Denies headache(s) ENT Denies dysphagia, Denies dizziness, Denies otalgia, Denies headache(s), Denies neck pain, Denies odynophagia and Denies sore throat Card Denies chest pain, Denies palpitations and Denies dyspnea Resp Denies chest congestion, Denies cough and Denies dyspnea GI Denies abdominal pain, Denies constipation, Denies dysphagia, Reports heartburn (on and off, mostly at night), Denies diarrhea, Denies nausea, Denies odynophagia and Denies vomiting Denies difficulty urinating, Denies dysuria, Denies nocturia and Reports urinary frequency (at times) Musc Denies back pain, Denies arthralgias and Denies neck pain Skin/Breast Denies rash Neuro Denies dizziness and Denies headache(s) Endo Denies fatigue and Denies palpitations Physical exam (Primary Care) Vital Signs: Last Vital Signs Pulse 54 10/20/24 08:49 BP 134/78 10/20/24 08:49 Pulse Ox 96 10/20/24 08:49 Oxygen Delivery Method Room Air 10/20/24 08:49 BMI result Body Mass Index 25.4 Tobacco/Smoking Status: Tobacco use Status Tobacco use date assessed 10/20/24 10/20/24 08:54 Patient Tobacco Use Status Former Tobacco user 10/20/24 08:54 Tobacco use type Cigarette 10/20/24 08:54 e-Cigarette/Vaping Use Never Used 10/20/24 08:54 PHQ-9: PHQ-9 Score PHQ-9: Total score 2 10/20/24 08:54 Depression Screening Interpretation: Negative Thrive Assessment: Date of Thrive Assessment Date Thrive assessed 10/20/24 10/20/24 08:54 Currently or been in a relationship where the following occur: No concerns reported Const General: no acute distress and alert HENMT Ears: TM's normal bilaterally and EAC's normal Throat: Yes posterior oropharynx normal and Yes tonsils normal (no TP congestion) Neck Neck: Yes supple and No lymphadenopathy Resp Auscultation: clear to auscultation bilaterally, no rales and no wheezes Cardio Rate: regular rate Rhythm: regular rhythm Heart sounds: no murmurs GI Palpation (GI): Soft to palpation and nontender Auscultation: normal bowel sounds General: Yes no CVA tenderness Back/Spine/Pelvis Back: no CVA tenderness Thoracic/Lumbar Spine: No lumbar spinal tenderness Skin Rashes: no rashes Extrem General: Yes no clubbing, cyanosis or edema Results Reviewed Results Reviewed: Laboratory Tests 10/10/24 07:20 TSH 2.81 Free T4 1.10 Coding Level of Care Code Est Pt Level 4 (28884) Diagnoses Acquired hypothyroidism E03.9 Pure hypercholesterolemia E78.00 Benign prostatic hyperplasia with lower urinary tract symptoms, symptom details unspecified N40.1 Lower urinary tract symptom detail: unspecified Insomnia, unspecified type G47.00 Insomnia type: unspecified Additional Codes PHQ-9 - 12396 - PHQ-9 Billing: Yes ([id number]) Assessment & Plan Assessment & Plan (1) Acquired hypothyroidism: Code(s): E03.9 - Hypothyroidism, unspecified Category: Medical Plan: His TFTs were within normal range when he had them checked a couple of weeks ago Continue Synthroid 150 mcg QD Will recheck his TFTs in 6 months (2) Pure hypercholesterolemia: Code(s): E78.00 - Pure hypercholesterolemia, unspecified Category: Medical Plan: Reinforced low cholesterol diet Patient is advised that his fasting lipids, especially his LDL cholesterol level, were still elevated when they were last checked by Dr. Rosenberg back in March 2024 Will have him recheck his labs and fasting lipids in 6 months for follow up (3) Benign prostatic hyperplasia with lower urinary tract symptoms: Code(s): N40.1 - Benign prostatic hyperplasia with lower urinary tract symptoms Category: Medical Qualifiers: Lower urinary tract symptom detail: unspecified Qualified Code(s): N40.1 - Benign prostatic hyperplasia with lower urinary tract symptoms Plan: Continue Finasteride 5 mg Q HS (4) Insomnia: Code(s): G47.00 - Insomnia, unspecified Category: Medical Qualifiers: Insomnia type: unspecified Qualified Code(s): G47.00 - Insomnia, unspecified Plan: Sleep hygiene reinforced Continue Zolpidem 5 mg Q HS PRN - Rx refilled Plan Follow up in 6 months Orders: Orders Complete Blood Count Auto Diff 6 Months D64.9 - Anemia, unspecified Lipid Panel 6 Months E78.00 - Pure hypercholesterolemia, unspecified Comprehensive [place]. Panel Fast 6 Months E78.00 - Pure hypercholesterolemia, unspecified Free T4 (Free Thyroxine) 6 Months E03.9 - Hypothyroidism, unspecified Thyroid Stimulating Hormone 6 Months E03.9 - Hypothyroidism, unspecified UA CC w/rflx Micro + Cult 6 Months R30.0 - Dysuria Vitamin D 25-OH Total 6 Months E55.9 - Vitamin D deficiency, unspecified Medications: Refilled 2 zolpidem 5 mg PO BEDTIME PRN 90 tabs 1RF insomnia
== END 2024-10-20 09:31 | disposition home or self-care (01) ==
LOC: HO.HMCH 08:42
PROVIDERS: PCP Internal Medicine; Visit Provider Internal Medicine
DX: E03.9 Hypothyroidism, unspecified (principal); E78.00 Pure hypercholesterolemia, unspecified; N40.1 Benign prostatic hyperplasia with lower urinary tract symptoms; G47.00 Insomnia, unspecified

== ENCOUNTER → 2024-10-20 08:41 | Outpatient (BNVA) | payer MEDICARE, OTHER, SELFPAY | PROVIDERS: PCP Internal Medicine; Visit Provider Internal Medicine | DX: E03.9 Hypothyroidism, unspecified (principal); E78.00 Pure hypercholesterolemia, unspecified; N40.1 Benign prostatic hyperplasia with lower urinary tract symptoms; G47.00 Insomnia, unspecified | CPT/HCPCS: 96127; 99212 ==